=== PATIENT | male | born 1970 | race Caucasian/White ===

== ENCOUNTER 2017-06-11 11:04 | Inpatient (IN) | payer OTHER ==
[2017-06-11 12:26] VITALS: BMI 25.3
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
[2017-06-11] MEDS ORDERED: P-EPHED 60MG/TRIPROLIDI 2.5MG TABLET PO PRN (16:31)
[2017-06-11] MEDS ORDERED: MENTHOL/PHENOL 1 EACH UD MM PRN (16:31)
[2017-06-11] MEDS ORDERED: MAGNESIUM CITRATE 300 ML BOTTLE PO PRN (16:31)
[2017-06-11] MEDS ORDERED: IBUPROFEN 400 MG TABLET (FP) PO PRN (16:31)
[2017-06-11] MEDS ORDERED: MAGNESIUM HYDROX 2400MG/30ML ORAL SUSPENSION 30 ML CUP PO PRN (16:31)
[2017-06-11] MEDS ORDERED: MAG HYDROX/AL HYDROX/SIMETH 30 ML UNIT-DOSE CUP PO PRN (16:31)
[2017-06-11] MEDS ORDERED: guaiFENesin/D-METHORPHAN HB 10 ML UNIT-DOSE CUPS PO PRN (16:31)
[2017-06-11] MEDS ORDERED: hydrOXYzine PAMOATE 50 MG CAPSULE (FP) PO PRN (16:31)
[2017-06-11] MEDS ORDERED: LOPERAMIDE HCL 2 MG CAPSULE PO PRN (16:31)
[2017-06-11] MEDS ORDERED: ACETAMINOPHEN 325 MG TABLET (FP) PO PRN (16:31)
[2017-06-11] MEDS ORDERED: diphenhydrAMINE HCL 50 MG CAPSULE PO PRN (16:31)
[2017-06-11] MEDS ORDERED: METHADONE HCL 10 MG TABLET (FOR DETOX USE ONLY) PO ONE ×2 (17:15→23:00)
[2017-06-11] MEDS ORDERED: diazePAM 5 MG TABLET PO ONE (17:15)
[2017-06-11] MEDS: NICOTINE 21 MG/24 HOURS TOPICAL PATCH TD SCH (17:58)
[2017-06-11 21:05] LABS: URINE APPEARANCE CLEAR; URINE BILIRUBIN NEGATIVE (NEGATIVE); URINE BLOOD 2+ (NEGATIVE); URINE COLOR LTYELLOW; URINE GLUCOSE (UA) NEGATIVE (NEGATIVE); URINE KETONE NEGATIVE (NEGATIVE); URINE NITRITE NEGATIVE (NEGATIVE); URINE PROTEIN NEGATIVE (NEGATIVE); URINE UROBILINOGEN NEGATIVE mg/dL (0.2-1.0)
[2017-06-11 21:21] LABS: URINE MUCUS RARE; URINE RBC <1 /hpf (0-3); URINE WBC 1 /hpf (3-5)
[2017-06-11] MEDS: THIAMINE HCL 100 MG TABLET (FP) PO SCH (22:11)
[2017-06-11] MEDS: diazePAM 5 MG TABLET PO SCH (22:11)
[2017-06-11] MEDS: NICOTINE POLACRILEX 2 MG GUM BC PRN (22:14)
[2017-06-11 22:48] LABS: URINE LEUK ESTERASE Negative (NEGATIVE)
[2017-06-12] MEDS: diazePAM 5 MG TABLET PO SCH ×3 (05:30→23:01)
--- NOTE | 2017-06-12 08:37 | EKG ---
Test Reason : Blood Pressure : / mmHG Vent. Rate : 072 BPM Atrial Rate : 072 BPM P-R Int : 136 ms QRS Dur : 120 ms QT Int : 376 ms P-R-T Axes : 054 007 055 degrees QTc Int : 411 ms NORMAL SINUS RHYTHM RIGHT BUNDLE BRANCH BLOCK ABNORMAL ECG WHEN COMPARED WITH ECG OF 11-JUN-2017 18:05, NO SIGNIFICANT CHANGE WAS FOUND Confirmed by HUNTER VALENTIN MD ([id number]) on 06/12/2017 8:37:06 AM Referred By: Confirmed By:HUNTER VALENTIN MD
[2017-06-12] MEDS ORDERED: METHADONE HCL 10 MG TABLET (FOR DETOX USE ONLY) PO SCH (10:00)
[2017-06-12] MEDS: diazePAM 5 MG TABLET PO PRN ×3 (10:11→21:18)
[2017-06-12] MEDS: PRENATAL VITAMINS W/ FOLIC ACID TABLET (FP) PO SCH (10:12)
[2017-06-12] MEDS: NICOTINE 21 MG/24 HOURS TOPICAL PATCH TD SCH (10:12)
[2017-06-12 11:03] LABS: MCH 27.5 pg (25.7-33.7); MCHC 33.5 g/dl (32.0-35.9); MEAN CELL VOLUME 81.9 fl (80-96); MEAN PLT VOLUME 8.1 fl (7.5-11.1); PLATELET COUNT 275 K/MM3 (134-434); RDW 15.5 % (11.9-15.9); WHITE BLOOD COUNT 8.1 K/mm3 (4.0-10.0)
[2017-06-12 11:13] LABS: ALBUMIN 3.9 g/dl (3.4-5.0); ANION GAP 8 (8-16); BILIRUBIN,TOTAL 0.3 mg/dL (0.2-1.0); CALCIUM 8.6 mg/dL (8.5-10.1); CO2 26 mmol/L (21-32); GLUCOSE,RANDOM 123 mg/dL (74-106); SGOT/AST 20 U/L (15-37); SGPT/ALT 30 U/L (12-78)
[2017-06-12 11:16] LABS: ALK PHOS 103 U/L (45-117)
--- NOTE | 2017-06-12 12:41 | CONSULT ---
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 Substance Abuse History: Patient admits to an extensive history of alcohol, cocaine and heroin abuse. Smoking history: Current every day smoker. Have you smoked in the past 12 months: Yes. Aproximately how many cigarettes per day: 20. Cigars Per Day: 0. Hx Chewing Tobacco Use: No. Initiated information on smoking cessation: Yes. 'Breaking Loose' booklet given: 06/11/17 (GIVEN ON UNIT.). - Substance & Tx. History. Hx Alcohol Use: Yes. Hx Substance Use: Yes. Substance Use Type: Alcohol, Cocaine, Heroin. Hx Substance Use Treatment : Yes (Previous detox admissions at [facility]: Most Recent: 11/2015.). - Substances Abused. Heroin. Route: Inhalation. Frequency: Daily. Amount used: 6-7 bags. Age of first use: 19. Date of Last Use: 06/10/17. Crack. Route: Smoking. Frequency: Daily. Amount used: $200-300. Age of first use: 14. Date of Last Use: 06/11/17. Alcohol-beer. Route: Oral. Frequency: Daily. Amount used: 10-12 (22 oz.). Age of first use: 12. Date of Last Use: 06/11/17 Medical History: Consistent with report of anemia,GERD,hypertension and bronchial asthma (childhood). Psychiatric History: Remote history of psychiatric hospitalization at [facility] (age 12) for behavioral disturbances.Diagnosed with ADHD and treated for some time with psychostimulants.Later in life,the patient saw a psychiatrist to address depression/anxiety which led to a diagnosis of MDD (treated with paxil at [facility]).Lost to follow up for several months.Off psychotropic medications at this time (own choice).Mr De Jesus denies history of suicide attempts. Physical/Sexual Abuse/Trauma History: Patient denies. Additional Comment: Urine Drug Screen Results: LUIS ALBERTO-Cocaine, OPI-Opiates.Noted. Mental Status Exam - Mental Status Exam Alert and Oriented to: Time, Place, Person Cognitive Function: Good Patient Appearance: Well Groomed Mood: Withdrawn, Hopeful, Euthymic Affect: Normal Range Patient Behavior: Fatigued, Appropriate, Cooperative Speech Pattern: Clear, Appropriate Voice Loudness: Normal Thought Process: Intact, Goal Oriented Thought Disorder: Not Present Hallucinations: Denies Suicidal Ideation: Denies Homicidal Ideation: Denies Insight/Judgement: Poor Sleep: Poorly, Difficulty falling asleep (requests ambien) Appetite: Good Muscle strength/Tone: Normal Gait/Station: Normal Psychiatric Findings - Problem List ([place] 1, 2,3) (1) Alcohol dependence with uncomplicated withdrawal Current Visit: Yes Status: Acute (2) Cocaine dependence, uncomplicated Current Visit: Yes Status: Acute (3) Opioid dependence with withdrawal Current Visit: Yes Status: Acute (4) Nicotine dependence Current Visit: Yes Status: Chronic Qualifiers: Nicotine product type: cigarettes Substance use status: uncomplicated Qualified Code(s): F17.210 - Nicotine dependence, cigarettes, uncomplicated; F17.210 - Nicotine dependence, cigarettes, uncomplicated (5) Substance induced mood disorder Current Visit: Yes Status: Acute (6) GERD (gastroesophageal reflux disease) Current Visit: Yes Status: Chronic Qualifiers: Esophagitis presence: esophagitis presence not specified Qualified Code(s): K21.9 - Gastro-esophageal reflux disease without esophagitis; K21.9 - Gastro-esophageal reflux disease without esophagitis; K21.9 - Gastro-esophageal reflux disease without esophagitis (7) Insomnia Current Visit: Yes Status: Acute - Initial Treatment Plan Initial Treatment Plan: Psychoeducation.Detoxification.Ambien 10 mg po hs prn.Risk for parasomnias : discussed with patient.Made aware of benefits of sleep hygiene.Mr De Jesus agrees with this careplan.Observation.
--- NOTE | 2017-06-12 16:42 | PN ---
S CIWA - CIWA Score Nausea/Vomitin Muscle Tremors: 4-Moderate,w/Arms Extend Anxiety: 4-Mod. Anxious/Guarded Agitation: 3 Paroxysmal Sweats: 3 Orientation: 0-Oriented Tacttile Disturbances: 0-None Auditory Disturbances: 0-None Visual Disturbances: 0-None Headache: 3-Moderate CIWA-Ar Total Score: 20 BHS COWS - Scale Resting Pulse: 1= [place] 81-100 Sweatin= Chills/Flushing Restless Observation: 1= Difficult to Sit Still Pupil Size: 0= Normal to Room Light Bone or Joint Aches: 2= Severe Diffuse Aches Runny Nose/ Eye Tearin= Runny Nose/Eyes GI Upset > 30mins: 2= Nausea/Diarrhea Tremor Observation of Outstretched Hands: 2= Slight Tremor Visible Yawning Observation: 2= >3x During Session Anxiety or Irritability: 2=Irritable/Anxious Goose Flesh Skin: 3=Piloerection COWS Score: 18 BHS Progress Note (SOAP) Subjective: Sweating, Interrupted sleep, Tremors, Nausea, Stomach Cramping, H/A, Fatigue. Objective: PT. A & O X 3, OBSERVED AMBULATING ON UNIT. NO ACUTE DISTRESS. PATIENT DENIES CHEST PAIN. 06/12/17 16:39 Vital Signs Temperature 98.4 F 06/12/17 14:30 Pulse Rate 86 06/12/17 14:30 Respiratory Rate 18 06/12/17 14:30 Blood Pressure 107/62 06/12/17 14:30 O2 Sat by Pulse Oximetry (%) Laboratory Tests 06/11/17 06/12/17 06/12/17 20:00 06:08 06:08 WBC 8.1 D RBC 4.96 Hgb 13.6 Hct 40.6 MCV 81.9 MCH 27.5 MCHC 33.5 RDW 15.5 Plt Count 275 MPV 8.1 Sodium 140 Potassium 4.1 Chloride 106 Carbon Dioxide 26 Anion Gap 8 BUN 17 D Creatinine 1.0 D Creat Clearance w eGFR > 60 Random Glucose 123 H D Calcium 8.6 Total Bilirubin 0.3 D AST 20 D ALT 30 D Alkaline Phosphatase 103 D Total Protein 7.0 Albumin 3.9 Urine Color Ltyellow Urine Appearance Clear Urine pH 5.0 Ur Specific [place] 1.010 Urine Protein Negative Urine Glucose (UA) Negative Urine Ketones Negative Urine Blood 2+ H Urine Nitrite Negative Urine Bilirubin Negative Urine Urobilinogen Negative Ur Leukocyte Esterase Negative Urine RBC <1 Urine WBC 1 Urine Mucus Rare RPR Titer 06/12/17 06:08 WBC RBC Hgb Hct MCV MCH MCHC RDW Plt Count MPV Sodium Potassium Chloride Carbon Dioxide Anion Gap BUN Creatinine Creat Clearance w eGFR Random Glucose Calcium Total Bilirubin AST ALT Alkaline Phosphatase Total Protein Albumin Urine Color Urine Appearance Urine pH Ur Specific [place] Urine Protein Urine Glucose (UA) Urine Ketones Urine Blood Urine Nitrite Urine Bilirubin Urine Urobilinogen Ur Leukocyte Esterase Urine RBC Urine WBC Urine Mucus RPR Titer Nonreactive LABS NOTED. Assessment: 06/12/17 16:40 WITHDRAWAL SYMPTOMS. Plan: CONTINUE DETOX. INCREASE DAILY PO FLUID INTAKE.
[2017-06-12] MEDS: NICOTINE POLACRILEX 2 MG GUM BC PRN (21:19)
[2017-06-12] MEDS: THIAMINE HCL 100 MG TABLET (FP) PO SCH (23:00)
[2017-06-12] MEDS: ZOLPIDEM TARTRATE 5 MG TABLET PO PRN (23:00)
[2017-06-13] MEDS: diazePAM 5 MG TABLET PO PRN ×3 (05:50→18:22)
--- NOTE | 2017-06-13 09:12 | EKG ---
Test Reason : Blood Pressure : / mmHG Vent. Rate : 078 BPM Atrial Rate : 078 BPM P-R Int : 146 ms QRS Dur : 114 ms QT Int : 388 ms P-R-T Axes : 056 018 040 degrees QTc Int : 442 ms NORMAL SINUS RHYTHM INCOMPLETE RIGHT BUNDLE BRANCH BLOCK BORDERLINE ECG NO PREVIOUS ECGS AVAILABLE Confirmed by HUNTER VALENTIN MD ([id number]) on 06/13/2017 9:12:01 AM Referred By: Confirmed By:HUNTER VALENTIN MD
[2017-06-13] MEDS: METHADONE HCL 5 MG TABLET (FOR DETOX USE ONLY) PO SCH (10:09)
[2017-06-13] MEDS: PRENATAL VITAMINS W/ FOLIC ACID TABLET (FP) PO SCH (10:09)
[2017-06-13] MEDS: diazePAM 5 MG TABLET PO SCH ×2 (10:09→22:12)
[2017-06-13] MEDS: NICOTINE 21 MG/24 HOURS TOPICAL PATCH TD SCH (10:09)
[2017-06-13] MEDS: NICOTINE POLACRILEX 2 MG GUM BC PRN (10:10)
--- NOTE | 2017-06-13 16:00 | PN ---
S CIWA - CIWA Score Nausea/Vomitin-No Nausea/No Vomiting Muscle Tremors: 5 Anxiety: 5 Agitation: 3 Paroxysmal Sweats: 3 Orientation: 0-Oriented Tacttile Disturbances: 1-Very Mild Itch/Numbness Auditory Disturbances: 0-None Visual Disturbances: 0-None Headache: 2-Mild CIWA-Ar Total Score: 19 BHS COWS - Scale Resting Pulse: 1= [place] 81-100 Sweatin=Flushed/Facial Moisture Restless Observation: 3= Extraneous Movement Pupil Size: 0= Normal to Room Light Bone or Joint Aches: 2= Severe Diffuse Aches Runny Nose/ Eye Tearin= Runny Nose/Eyes GI Upset > 30mins: 2= Nausea/Diarrhea Tremor Observation of Outstretched Hands: 2= Slight Tremor Visible Yawning Observation: 0= None Anxiety or Irritability: 2=Irritable/Anxious Goose Flesh Skin: 0=Smooth Skin COWS Score: 16 BHS Progress Note (SOAP) Subjective: Body aches, interrupted sleep, sweating, chills, tremor Objective: 06/13/17 15:58 Vital Signs - 8 hr Last Vital Signs Temp Pulse Resp BP Pulse Ox 97.0 F L 95 H 16 121/83 06/13/17 12:54 06/13/17 12:54 06/13/17 12:54 06/13/17 12:54 Laboratory Tests 06/11/17 06/12/17 06/12/17 20:00 06:08 06:08 WBC 8.1 D RBC 4.96 Hgb 13.6 Hct 40.6 MCV 81.9 MCH 27.5 MCHC 33.5 RDW 15.5 Plt Count 275 MPV 8.1 Sodium 140 Potassium 4.1 Chloride 106 Carbon Dioxide 26 Anion Gap 8 BUN 17 D Creatinine 1.0 D Creat Clearance w eGFR > 60 Random Glucose 123 H D Calcium 8.6 Total Bilirubin 0.3 D AST 20 D ALT 30 D Alkaline Phosphatase 103 D Total Protein 7.0 Albumin 3.9 Urine Color Ltyellow Urine Appearance Clear Urine pH 5.0 Ur Specific [place] 1.010 Urine Protein Negative Urine Glucose (UA) Negative Urine Ketones Negative Urine Blood 2+ H Urine Nitrite Negative Urine Bilirubin Negative Urine Urobilinogen Negative Ur Leukocyte Esterase Negative Urine RBC <1 Urine WBC 1 Urine Mucus Rare RPR Titer 06/12/17 06:08 WBC RBC Hgb Hct MCV MCH MCHC RDW Plt Count MPV Sodium Potassium Chloride Carbon Dioxide Anion Gap BUN Creatinine Creat Clearance w eGFR Random Glucose Calcium Total Bilirubin AST ALT Alkaline Phosphatase Total Protein Albumin Urine Color Urine Appearance Urine pH Ur Specific [place] Urine Protein Urine Glucose (UA) Urine Ketones Urine Blood Urine Nitrite Urine Bilirubin Urine Urobilinogen Ur Leukocyte Esterase Urine RBC Urine WBC Urine Mucus RPR Titer Nonreactive Labs noted: UA noted with 2+ blood Assessment: 06/13/17 16:00 Withdrawal symptoms Noted with microscopic hematuria Plan: Continue detox Microscopic hematuria: encouraged to drink lots of water, repeat UA
[2017-06-13] MEDS: ZOLPIDEM TARTRATE 5 MG TABLET PO PRN (22:12)
[2017-06-13] MEDS: THIAMINE HCL 100 MG TABLET (FP) PO SCH (22:12)
[2017-06-14] MEDS: diazePAM 5 MG TABLET PO PRN ×3 (01:40→12:11)
[2017-06-14] MEDS: NICOTINE POLACRILEX 2 MG GUM BC PRN (05:33)
[2017-06-14 09:57] LABS: URINE APPEARANCE CLEAR; URINE BILIRUBIN NEGATIVE (NEGATIVE); URINE BLOOD 1+ (NEGATIVE); URINE COLOR STRAW; URINE GLUCOSE (UA) NEGATIVE (NEGATIVE); URINE KETONE NEGATIVE (NEGATIVE); URINE NITRITE NEGATIVE (NEGATIVE); URINE PROTEIN NEGATIVE (NEGATIVE); URINE UROBILINOGEN NEGATIVE mg/dL (0.2-1.0)
[2017-06-14 09:59] LABS: URINE MUCUS RARE; URINE RBC 2 /hpf (0-3)
--- NOTE | 2017-06-14 10:04 | PN ---
BHS Progress Note (SOAP) Subjective: ANXIETY,HOT/COLD FLASHES,IRRITABILITY,BACK ACHE,FATIGUE. Objective: 06/14/17 10:03 Vital Signs Temperature 97.4 F L 06/14/17 09:28 Pulse Rate 88 06/14/17 09:28 Respiratory Rate 18 06/14/17 09:28 Blood Pressure 114/74 06/14/17 09:28 O2 Sat by Pulse Oximetry (%) Laboratory Last Values WBC 8.1 K/mm3 (4.0-10.0) D 06/12/17 06:08 RBC 4.96 M/mm3 (4.00-5.60) 06/12/17 06:08 Hgb 13.6 GM/dL (11.7-16.9) 06/12/17 06:08 Hct 40.6 % (35.4-49) 06/12/17 06:08 MCV 81.9 fl (80-96) 06/12/17 06:08 MCH 27.5 pg (25.7-33.7) 06/12/17 06:08 MCHC 33.5 g/dl (32.0-35.9) 06/12/17 06:08 RDW 15.5 % (11.9-15.9) 06/12/17 06:08 Plt Count 275 K/MM3 (134-434) 06/12/17 06:08 MPV 8.1 fl (7.5-11.1) 06/12/17 06:08 Sodium 140 mmol/L (136-145) 06/12/17 06:08 Potassium 4.1 mmol/L (3.5-5.1) 06/12/17 06:08 Chloride 106 mmol/L (98-107) 06/12/17 06:08 Carbon Dioxide 26 mmol/L (21-32) 06/12/17 06:08 Anion Gap 8 (8-16) 06/12/17 06:08 BUN 17 mg/dL (7-18) D 06/12/17 06:08 Creatinine 1.0 mg/dL (0.7-1.3) D 06/12/17 06:08 Creat Clearance w eGFR > 60 (>60) 06/12/17 06:08 Random Glucose 123 mg/dL (74-106) H D 06/12/17 06:08 Calcium 8.6 mg/dL (8.5-10.1) 06/12/17 06:08 Total Bilirubin 0.3 mg/dL (0.2-1.0) D 06/12/17 06:08 AST 20 U/L (15-37) D 06/12/17 06:08 ALT 30 U/L (12-78) D 06/12/17 06:08 Alkaline Phosphatase 103 U/L (45-117) D 06/12/17 06:08 Total Protein 7.0 g/dl (6.4-8.2) 06/12/17 06:08 Albumin 3.9 g/dl (3.4-5.0) 06/12/17 06:08 Urine Color Straw 06/14/17 08:30 Urine Appearance Clear 06/14/17 08:30 Urine pH 5.0 (5.0-8.0) 06/14/17 08:30 Ur Specific [place] 1.010 (1.005-1.025) 06/11/17 20:00 Urine Protein Negative (NEGATIVE) 06/14/17 08:30 Urine Glucose (UA) Negative (NEGATIVE) 06/14/17 08:30 Urine Ketones Negative (NEGATIVE) 06/14/17 08:30 Urine Blood 1+ (NEGATIVE) H 06/14/17 08:30 Urine Nitrite Negative (NEGATIVE) 06/14/17 08:30 Urine Bilirubin Negative (NEGATIVE) 06/14/17 08:30 Urine Urobilinogen Negative mg/dL (0.2-1.0) 06/14/17 08:30 Ur Leukocyte Esterase Negative (NEGATIVE) 06/11/17 20:00 Urine RBC <1 /hpf (0-3) 06/11/17 20:00 Urine WBC 1 /hpf (3-5) 06/11/17 20:00 Urine Mucus Rare 06/11/17 20:00 RPR Titer Nonreactive (NONREACTIVE) 06/12/17 06:08 Assessment: 06/14/17 10:03 WITHDRAWAL SX Plan: CONTINUE DETOX INCREASE PO FLUIDS.
[2017-06-14] MEDS: METHADONE HCL 5 MG TABLET (FOR DETOX USE ONLY) PO SCH (10:09)
[2017-06-14] MEDS: diazePAM 5 MG TABLET PO SCH ×2 (10:09→22:31)
[2017-06-14] MEDS: PRENATAL VITAMINS W/ FOLIC ACID TABLET (FP) PO SCH (10:09)
[2017-06-14] MEDS: NICOTINE 21 MG/24 HOURS TOPICAL PATCH TD SCH (10:10)
[2017-06-14 13:12] LABS: URINE LEUK ESTERASE Negative (NEGATIVE)
[2017-06-14] MEDS ORDERED: diazePAM 5 MG TABLET PO ONE (17:15)
[2017-06-14] MEDS: THIAMINE HCL 100 MG TABLET (FP) PO SCH (22:31)
[2017-06-14] MEDS: ZOLPIDEM TARTRATE 5 MG TABLET PO PRN (22:31)
[2017-06-15] MEDS ORDERED: METHADONE HCL 10 MG TABLET (FOR DETOX USE ONLY) PO SCH (10:00)
[2017-06-15] MEDS ORDERED: diazePAM 5 MG TABLET PO SCH (10:00)
[2017-06-15] MEDS: PRENATAL VITAMINS W/ FOLIC ACID TABLET (FP) PO SCH (10:10)
[2017-06-15] MEDS: NICOTINE 21 MG/24 HOURS TOPICAL PATCH TD SCH (10:11)
--- NOTE | 2017-06-15 11:51 | PN ---
BHS Progress Note (SOAP) Subjective: ANXIETY,SWEATS,TREMORS. Objective: 06/15/17 11:50 Vital Signs Temperature 97.5 F L 06/15/17 09:15 Pulse Rate 80 06/15/17 09:15 Respiratory Rate 18 06/15/17 09:15 Blood Pressure 134/81 06/15/17 09:15 O2 Sat by Pulse Oximetry (%) Laboratory Last Values WBC 8.1 K/mm3 (4.0-10.0) D 06/12/17 06:08 RBC 4.96 M/mm3 (4.00-5.60) 06/12/17 06:08 Hgb 13.6 GM/dL (11.7-16.9) 06/12/17 06:08 Hct 40.6 % (35.4-49) 06/12/17 06:08 MCV 81.9 fl (80-96) 06/12/17 06:08 MCH 27.5 pg (25.7-33.7) 06/12/17 06:08 MCHC 33.5 g/dl (32.0-35.9) 06/12/17 06:08 RDW 15.5 % (11.9-15.9) 06/12/17 06:08 Plt Count 275 K/MM3 (134-434) 06/12/17 06:08 MPV 8.1 fl (7.5-11.1) 06/12/17 06:08 Sodium 140 mmol/L (136-145) 06/12/17 06:08 Potassium 4.1 mmol/L (3.5-5.1) 06/12/17 06:08 Chloride 106 mmol/L (98-107) 06/12/17 06:08 Carbon Dioxide 26 mmol/L (21-32) 06/12/17 06:08 Anion Gap 8 (8-16) 06/12/17 06:08 BUN 17 mg/dL (7-18) D 06/12/17 06:08 Creatinine 1.0 mg/dL (0.7-1.3) D 06/12/17 06:08 Creat Clearance w eGFR > 60 (>60) 06/12/17 06:08 Random Glucose 123 mg/dL (74-106) H D 06/12/17 06:08 Calcium 8.6 mg/dL (8.5-10.1) 06/12/17 06:08 Total Bilirubin 0.3 mg/dL (0.2-1.0) D 06/12/17 06:08 AST 20 U/L (15-37) D 06/12/17 06:08 ALT 30 U/L (12-78) D 06/12/17 06:08 Alkaline Phosphatase 103 U/L (45-117) D 06/12/17 06:08 Total Protein 7.0 g/dl (6.4-8.2) 06/12/17 06:08 Albumin 3.9 g/dl (3.4-5.0) 06/12/17 06:08 Urine Color Straw 06/14/17 08:30 Urine Appearance Clear 06/14/17 08:30 Urine pH 5.0 (5.0-8.0) 06/14/17 08:30 Ur Specific [place] 1.010 (1.005-1.025) 06/14/17 08:30 Urine Protein Negative (NEGATIVE) 06/14/17 08:30 Urine Glucose (UA) Negative (NEGATIVE) 06/14/17 08:30 Urine Ketones Negative (NEGATIVE) 06/14/17 08:30 Urine Blood 1+ (NEGATIVE) H 06/14/17 08:30 Urine Nitrite Negative (NEGATIVE) 06/14/17 08:30 Urine Bilirubin Negative (NEGATIVE) 06/14/17 08:30 Urine Urobilinogen Negative mg/dL (0.2-1.0) 06/14/17 08:30 Ur Leukocyte Esterase Negative (NEGATIVE) 06/14/17 08:30 Urine RBC 2 /hpf (0-3) 06/14/17 08:30 Urine WBC None /hpf (3-5) 06/14/17 08:30 Ur Epithelial Cells Rare /hpf (FEW) 06/14/17 08:30 Urine Mucus Rare 06/14/17 08:30 RPR Titer Nonreactive (NONREACTIVE) 06/12/17 06:08 Assessment: 06/15/17 11:50 WITHDRAWAL SX Plan: CONTINUE DETOX
[2017-06-15] MEDS: THIAMINE HCL 100 MG TABLET (FP) PO SCH (22:08)
[2017-06-15] MEDS: ZOLPIDEM TARTRATE 5 MG TABLET PO PRN (22:08)
[2017-06-16] MEDS ORDERED: METHADONE HCL 5 MG TABLET (FOR DETOX USE ONLY) PO SCH (06:00)
[2017-06-16 06:07] VITALS: BP 116/70; PULSE 68; TEMP 97.4
--- NOTE | 2017-06-16 09:22 | DS ---
[facility] Detox Discharge Summary Admission Date: 06/11/17 Discharge Date: 06/16/17 - History Present History: Alcohol Dependence, Cocaine Dependence, Opioid Dependence Additional Comments: DETOX COMPLETED. ALERT O X 3. NAD. PT TO FOLLOW UP WITH PCP AT [facility]. Pertinent Past History: GERD HX VASCULAR INSUFFICIENCY OF LIMB BORDERLINE HTN HX ANEMIA CHILDHOOD ASTHMA - Physical Exam Results Vital Signs: Vital Signs Temperature 97.4 F L 06/16/17 06:06 Pulse Rate 68 06/16/17 06:06 Respiratory Rate 16 06/16/17 06:06 Blood Pressure 116/70 06/16/17 06:06 O2 Sat by Pulse Oximetry (%) Pertinent Admission Physical Exam Findings: WITHDRAWAL SX Laboratory Last Values WBC 8.1 K/mm3 (4.0-10.0) D 06/12/17 06:08 RBC 4.96 M/mm3 (4.00-5.60) 06/12/17 06:08 Hgb 13.6 GM/dL (11.7-16.9) 06/12/17 06:08 Hct 40.6 % (35.4-49) 06/12/17 06:08 MCV 81.9 fl (80-96) 06/12/17 06:08 MCH 27.5 pg (25.7-33.7) 06/12/17 06:08 MCHC 33.5 g/dl (32.0-35.9) 06/12/17 06:08 RDW 15.5 % (11.9-15.9) 06/12/17 06:08 Plt Count 275 K/MM3 (134-434) 06/12/17 06:08 MPV 8.1 fl (7.5-11.1) 06/12/17 06:08 Sodium 140 mmol/L (136-145) 06/12/17 06:08 Potassium 4.1 mmol/L (3.5-5.1) 06/12/17 06:08 Chloride 106 mmol/L (98-107) 06/12/17 06:08 Carbon Dioxide 26 mmol/L (21-32) 06/12/17 06:08 Anion Gap 8 (8-16) 06/12/17 06:08 BUN 17 mg/dL (7-18) D 06/12/17 06:08 Creatinine 1.0 mg/dL (0.7-1.3) D 06/12/17 06:08 Creat Clearance w eGFR > 60 (>60) 06/12/17 06:08 Random Glucose 123 mg/dL (74-106) H D 06/12/17 06:08 Calcium 8.6 mg/dL (8.5-10.1) 06/12/17 06:08 Total Bilirubin 0.3 mg/dL (0.2-1.0) D 06/12/17 06:08 AST 20 U/L (15-37) D 06/12/17 06:08 ALT 30 U/L (12-78) D 06/12/17 06:08 Alkaline Phosphatase 103 U/L (45-117) D 06/12/17 06:08 Total Protein 7.0 g/dl (6.4-8.2) 06/12/17 06:08 Albumin 3.9 g/dl (3.4-5.0) 06/12/17 06:08 Urine Color Straw 06/14/17 08:30 Urine Appearance Clear 06/14/17 08:30 Urine pH 5.0 (5.0-8.0) 06/14/17 08:30 Ur Specific [place] 1.010 (1.005-1.025) 06/14/17 08:30 Urine Protein Negative (NEGATIVE) 06/14/17 08:30 Urine Glucose (UA) Negative (NEGATIVE) 06/14/17 08:30 Urine Ketones Negative (NEGATIVE) 06/14/17 08:30 Urine Blood 1+ (NEGATIVE) H 06/14/17 08:30 Urine Nitrite Negative (NEGATIVE) 06/14/17 08:30 Urine Bilirubin Negative (NEGATIVE) 06/14/17 08:30 Urine Urobilinogen Negative mg/dL (0.2-1.0) 06/14/17 08:30 Ur Leukocyte Esterase Negative (NEGATIVE) 06/14/17 08:30 Urine RBC 2 /hpf (0-3) 06/14/17 08:30 Urine WBC None /hpf (3-5) 06/14/17 08:30 Ur Epithelial Cells Rare /hpf (FEW) 06/14/17 08:30 Urine Mucus Rare 06/14/17 08:30 RPR Titer Nonreactive (NONREACTIVE) 06/12/17 06:08 - Treatment Hospital Course: Detox Protocol Followed, Detoxed Safely, Responded well, Discharged Condition Good - Medication Discharge Medications: Ambulatory Orders NK [No Known Home Medication] 06/11/17 - Diagnosis (1) Alcohol dependence with uncomplicated withdrawal Status: Acute (2) Cocaine dependence, uncomplicated Status: Acute (3) Opioid dependence with withdrawal Status: Acute (4) GERD (gastroesophageal reflux disease) Status: Chronic Qualifiers: Esophagitis presence: esophagitis presence not specified Qualified Code(s): K21.9 - Gastro-esophageal reflux disease without esophagitis; K21.9 - Gastro-esophageal reflux disease without esophagitis; K21.9 - Gastro-esophageal reflux disease without esophagitis (5) History of iron deficiency anemia Status: Chronic - AMA Did Patient Leave Against Medical Advice: No
== END 2017-06-16 08:26 | disposition home or self-care (01) | DRG 773 ==
LOC: YASAS 11:04 → Y3N 15:21
PROVIDERS: ADMIT Internal Medicine; ATTEND Internal Medicine
PROC: HZ2ZZZZ Detoxification Services for Substance Abuse Treatment (ICD-10-PCS; principal; 2017-06-11)
DX: F11.23 Opioid dependence with withdrawal (principal); F10.230 Alcohol dependence with withdrawal, uncomplicated; F14.20 Cocaine dependence, uncomplicated; F17.213 Nicotine dependence, cigarettes, with withdrawal; K21.9 Gastro-esophageal reflux disease without esophagitis; R03.0 Elevated blood-pressure reading, without diagnosis of hypertension; R31.29 Other microscopic hematuria; G47.00 Insomnia, unspecified; Z91.018 Allergy to other foods; Z86.2 Personal history of diseases of the blood and blood-forming organs and certain disorders involving the immune mechanism; Z87.09 Personal history of other diseases of the respiratory system
CPT/HCPCS: 36415; 80053; 81003; 81015; 85027; 86593; 93005; 93010

== ENCOUNTER 2020-02-05 12:28 | Inpatient (IN) | payer OTHER ==
--- NOTE | 2020-02-05 12:45 | BHS.RME ---
Substance Use & Tx History - Substance Use History Alcohol Substance amount: 6 20 oz beers Frequency of use: Daily Substance route: Oral Date of Last Use: 02/04/20 Heroin Substance amount: 8-12 bags Frequency of use: Daily Substance route: Inhalation (ex: sniffing or snorting) Date of Last Use: 02/04/20 Cocaine-Crack Substance amount: $20-100 Frequency of use: Daily Substance route: Smoking Date of Last Use: 02/04/20 Nicotine Substance amount: 1 pack Frequency of use: Daily Substance route: Smoking Date of Last Use: 02/05/20 Physical/Psych/Mental Status - Behavior General Behavior: Increased activity (restlessness, agitation) Eye Contact: Normal - Cooperativeness Cooperativeness: Cooperative - Thinking Thought Processes: Tight, Logical, Goal Directed - Physical Health Problems Is patient presently having any pain?: No Does patient presently have any injuries (include location): No Does patient currently have a fever: No Is patient : No COWS - Scale Resting Pulse: 0= [place] 80 or Below Sweatin= Beads of Sweat on Face Restless Observation: 1= Difficult to Sit Still Pupil Size: 1= Pupils >than Normal Bone or Joint Aches: 1= Mild Discomfort Runny Nose/ Eye Tearin= Runny Nose/Eyes GI Upset > 30mins: 3= Vomiting/Diarrhea Tremor Observation: 2= Slight Tremor Visible Yawning Observation: 1= 1-2x During Session Anxiety or Irritability: 2=Irritable/Anxious Goose Flesh Skin: 0=Smooth Skin COWS Score: 16
--- NOTE | 2020-02-05 13:53 | HP ---
COWS - Scale Resting Pulse: 0= [place] 80 or Below Sweatin= Beads of Sweat on Face Restless Observation: 1= Difficult to Sit Still Pupil Size: 1= Pupils >than Normal Bone or Joint Aches: 1= Mild Discomfort Runny Nose/ Eye Tearin= Runny Nose/Eyes GI Upset > 30mins: 3= Vomiting/Diarrhea Tremor Observation: 2= Slight Tremor Visible Yawning Observation: 1= 1-2x During Session Anxiety or Irritability: 2=Irritable/Anxious Goose Flesh Skin: 0=Smooth Skin COWS Score: 16 CIWA Score Nausea/Vomitin Muscle Tremors: 3 Anxiety: 1-Mildly Anxious Agitation: 1-Slight > Activity Paroxysmal Sweats: 3 Orientation: 2-Disoriented Date<2 days Tacttile Disturbances: 1-Very Mild Itch/Numbness Auditory Disturbances: 0-None Visual Disturbances: 2-Mild Sensitivity Headache: 0-None Present CIWA-Ar Total Score: 15 - Admission Criteria OASAS Guidelines: Admission for Medically Managed Detox: Requires at least one of the followin. CIWA greater than 12 2. Seizures within the past 24 hours 3. Delirium tremens within the past 24 hours 4. Hallucinations within the past 24 hours 5. Acute intervention needed for co occurring medical disorder 6. Acute intervention needed for co occurring psychiatric disorder 7. Severe withdrawal that cannot be handled at a lower level of care (continued vomiting, continued diarrhea, abnormal vital signs) requiring intravenous medication and/or fluids 8. Admitting History and Physical - Admission Chief Complaint: Mr. De Jesus is a 49 yo gentleman who presents to [facility] stating "I can't do it no more, I'm running around all day, I'm going to ". He requests detox admission. History of Present Illness: Mr. De Jesus is a 49 yo gentleman who presents to [facility] stating "I can't do it no more, I'm running around all day, I'm going to ". He requests detox admission. He was last here in detox in 2017 and in groups in 2018. He relapsed 3 mos ago when he was released from assisted. 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 No Narcan at home Cocaine-Crack Substance amount: $20-100 Frequency of use: Daily Substance route: Smoking Date of Last Use: 02/04/20 First use age 14y Nicotine Substance amount: 1 pack Frequency of use: Daily Substance route: Smoking Date of Last Use: 02/05/20 First use age 11 y History Source: Patient Limitations to Obtaining History: No Limitations - Smoking History Smoking history: Current every day smoker Have you smoked in the past 12 months: Yes Aproximately how many cigarettes per day: 20 - Alcohol/Substance Use Hx Alcohol Use: Yes Admission ROS S - HPI Allergies/Adverse Reactions: Allergies Allergy/AdvReac Type Severity Reaction Status Date / Time No Known Drug Allergies Allergy Verified 06/11/17 13:55 soy AdvReac Severe Vomiting Verified 06/11/17 13:55 red meat AdvReac Severe Vomiting Uncoded 06/11/17 13:55 Exam Limitations: No Limitations - Ebola screening Have you traveled outside of the country in the last 21 days: No Have you been sick,other than usual withdrawal symptoms: No Do you have a fever: No - Review of Systems Constitutional: Unintentional Wgt. Loss (50 lb loss in past 4 mos) EENT: reports: Nose Congestion Respiratory: reports: No Symptoms reported Cardiac: reports: No Symptoms Reported GI: reports: Nausea : reports: No Symptoms Reported Musculoskeletal: reports: Muscle Pain Integumentary: reports: Dryness Neuro: reports: Headache, Tremors Endocrine: reports: No Symptoms Reported Hematology: reports: No Symptoms Reported Psychiatric: reports: Agitated, Anxious Patient History - Patient Medical History Hx Anemia: Yes (Iron-deficieny type; Only treated with Dietary modification in past.) Hx Asthma: Yes (as a child) Hx Chronic Obstructive Pulmonary Disease (COPD): No Hx Cancer: No Hx Cardiac Disorders: No Hx Congestive Heart Failure: No Hx Hypertension: Yes (Borderline; No medication in past.) Hx Hypercholesterolemia: No Hx Pacemaker: No HX Cerebrovascular Accident: No Hx Seizures: No Hx Dementia: No Hx Diabetes: No Hx Gastrointestinal Disorders: Yes (acid reflux) Hx Liver Disease: No Hx Genitourinary Disorders: No Hx Sexually Transmitted Disorders: No Hx Renal Disease (ESRD): No Hx Thyroid Disease: No Hx Human Immunodeficiency Virus (HIV): Yes (Last Tested a few Months ago: NEGATIVE.) Hx Hepatitis C: No (Last Tested a few Months ago: NEGATIVE.) Hx Depression: Yes (Anxiety; meds. in past; none current.) Hx Suicide Attempt: No (PATIENT DENIES CURRENT SI / HI.) Hx Bipolar Disorder: No Hx Schizophrenia: No - Patient Surgical History Past Surgical History: No Hx Neurologic Surgery: No Hx Cataract Extraction: No Hx Cardiac Surgery: No Hx Lung Surgery: No Hx Breast Surgery: No Hx Breast Biopsy: No Hx Abdominal Surgery: No Hx Appendectomy: No Hx Cholecystectomy: No Hx Genitourinary Surgery: No Hx Section: No Hx Orthopedic Surgery: No Anesthesia Reaction: No - PPD History Date: 06/13/17 - Smoking Cessation Smoking history: Current every day smoker Have you smoked in the past 12 months: Yes Aproximately how many cigarettes per day: 20 Cigars Per Day: 0 Hx Chewing Tobacco Use: No Initiated information on smoking cessation: Yes 'Breaking Loose' booklet given: 02/05/20 Admission Physical Exam [facility] - Physical General Appearance: Yes: Mild Distress, Thin, Tremorous HEENTM: Yes: EOMI, Hearing grossly Normal, Normocephalic, Normal Voice Respiratory: Yes: Lungs Clear, Normal Breath Sounds Neck: Yes: Within Normal Limits, Supple, Trachea in good position Breast: Yes: Breast Exam Deferred Cardiology: Yes: Regular Rhythm, Regular Rate, S1, S2 Abdominal: Yes: Non Tender, Flat, Soft, Increased Bowel Sounds Back: Yes: Normal Inspection Musculoskeletal: Yes: Gait Steady Extremities: Yes: Within Normal Limits, Non-Tender Neurological: Yes: Alert, Normal Mood/Affect Integumentary: Yes: Within Normal Limits Lymphatic: Yes: Within Normal Limits - Diagnostic (1) Benzodiazepine dependence Current Visit: Yes Status: Acute (2) Alcohol dependence with uncomplicated withdrawal Current Visit: Yes Status: Acute (3) Nicotine dependence Current Visit: Yes Status: Acute Qualifiers: Nicotine product type: cigarettes Substance use status: uncomplicated Q ualified Code(s): F17.210 - Nicotine dependence, cigarettes, uncomplicated (4) Opioid dependence with withdrawal Current Visit: Yes Status: Acute Cleared for Admission [facility] - Detox or Rehab [facility] Level of Care: Medically Managed Detox Regimen/Protocol: Methadone/Librium Inpatient Rehab Admission - Rehab Decision to Admit Inpatient rehab admission?: No
[2020-02-05] MEDS ORDERED: ONDANSETRON *ODT* 4 MG TABLET SL PRN (14:01)
[2020-02-05] MEDS ORDERED: ACETAMINOPHEN 325 MG TABLET (FP) PO PRN ×2 (14:01)
[2020-02-05] MEDS ORDERED: METHOCARBAMOL 500 MG TABLET PO PRN (14:01)
[2020-02-05] MEDS ORDERED: NICOTINE POLACRILEX 2 MG GUM BUC PRN (14:01)
[2020-02-05] MEDS ORDERED: chlordiazePOXIDE HCL 25 MG CAPSULE PO PRN (14:01)
[2020-02-05] MEDS ORDERED: IBUPROFEN 400 MG TABLET (FP) PO PRN (14:01)
[2020-02-05] MEDS ORDERED: cloNIDine HCL 0.1 MG TABLET PO PRN (14:01)
[2020-02-05] MEDS ORDERED: BISMUTH SUBSALICYLATE 262 MG/15 ML BTL PO PRN (14:01)
[2020-02-05] MEDS ORDERED: MAGNESIUM CITRATE 300 ML BOTTLE PO PRN (14:01)
[2020-02-05] MEDS ORDERED: METHADONE HCL 10 MG TABLET (FOR DETOX USE ONLY) PO ONE (14:01)
[2020-02-05] MEDS ORDERED: MENTHOL/PHENOL 1 EACH UD MM PRN (14:01)
[2020-02-05] MEDS ORDERED: MAG HYDROX/AL HYDROX/SIMETH 30 ML UNIT-DOSE CUP PO PRN (14:01)
[2020-02-05] MEDS ORDERED: METHADONE HCL 10 MG TABLET PO ONE (14:06)
--- NOTE | 2020-02-05 14:09 | HP ---
COWS - Scale Resting Pulse: 0= [place] 80 or Below Sweatin= Beads of Sweat on Face Restless Observation: 1= Difficult to Sit Still Pupil Size: 1= Pupils >than Normal Bone or Joint Aches: 1= Mild Discomfort Runny Nose/ Eye Tearin= Runny Nose/Eyes GI Upset > 30mins: 3= Vomiting/Diarrhea Tremor Observation: 2= Slight Tremor Visible Yawning Observation: 1= 1-2x During Session Anxiety or Irritability: 2=Irritable/Anxious Goose Flesh Skin: 0=Smooth Skin COWS Score: 16 CIWA Score Nausea/Vomitin Muscle Tremors: 3 Anxiety: 1-Mildly Anxious Agitation: 1-Slight > Activity Paroxysmal Sweats: 3 Orientation: 2-Disoriented Date<2 days Tacttile Disturbances: 1-Very Mild Itch/Numbness Auditory Disturbances: 0-None Visual Disturbances: 2-Mild Sensitivity Headache: 0-None Present CIWA-Ar Total Score: 15 - Admission Criteria OASAS Guidelines: Admission for Medically Managed Detox: Requires at least one of the followin. CIWA greater than 12 2. Seizures within the past 24 hours 3. Delirium tremens within the past 24 hours 4. Hallucinations within the past 24 hours 5. Acute intervention needed for co occurring medical disorder 6. Acute intervention needed for co occurring psychiatric disorder 7. Severe withdrawal that cannot be handled at a lower level of care (continued vomiting, continued diarrhea, abnormal vital signs) requiring intravenous medication and/or fluids 8. Admitting History and Physical - Admission History of Present Illness: addendum: pt takes Xanax 2-4 mg daily, began age 19y, last use 02/02 - Smoking History Smoking history: Current every day smoker Have you smoked in the past 12 months: Yes Aproximately how many cigarettes per day: 20 - Alcohol/Substance Use Hx Alcohol Use: Yes Admission ROS S - HPI Allergies/Adverse Reactions: Allergies Allergy/AdvReac Type Severity Reaction Status Date / Time No Known Drug Allergies Allergy Verified 06/11/17 13:55 soy AdvReac Severe Vomiting Verified 06/11/17 13:55 red meat AdvReac Severe Vomiting Uncoded 06/11/17 13:55 - Ebola screening Have you traveled outside of the country in the last 21 days: No Have you been sick,other than usual withdrawal symptoms: No Do you have a fever: No Patient History - Patient Medical History Hx Anemia: Yes (Iron-deficieny type; Only treated with Dietary modification in past.) Hx Asthma: Yes (as a child) Hx Chronic Obstructive Pulmonary Disease (COPD): No Hx Cancer: No Hx Cardiac Disorders: No Hx Congestive Heart Failure: No Hx Hypertension: Yes (Borderline; No medication in past.) Hx Hypercholesterolemia: No Hx Pacemaker: No HX Cerebrovascular Accident: No Hx Seizures: No Hx Dementia: No Hx Diabetes: No Hx Gastrointestinal Disorders: Yes (acid reflux) Hx Liver Disease: No Hx Genitourinary Disorders: No Hx Sexually Transmitted Disorders: No Hx Renal Disease (ESRD): No Hx Thyroid Disease: No Hx Human Immunodeficiency Virus (HIV): Yes (Last Tested a few Months ago: NEGATIVE.) Hx Hepatitis C: No (Last Tested a few Months ago: NEGATIVE.) Hx Depression: Yes (Anxiety; meds. in past; none current.) Hx Suicide Attempt: No (PATIENT DENIES CURRENT SI / HI.) Hx Bipolar Disorder: No Hx Schizophrenia: No - Patient Surgical History Past Surgical History: No Hx Neurologic Surgery: No Hx Cataract Extraction: No Hx Cardiac Surgery: No Hx Lung Surgery: No Hx Breast Surgery: No Hx Breast Biopsy: No Hx Abdominal Surgery: No Hx Appendectomy: No Hx Cholecystectomy: No Hx Genitourinary Surgery: No Hx Section: No Hx Orthopedic Surgery: No Anesthesia Reaction: No - PPD History Date: 06/13/17 - Smoking Cessation Smoking history: Current every day smoker Have you smoked in the past 12 months: Yes Aproximately how many cigarettes per day: 20 Cigars Per Day: 0 Hx Chewing Tobacco Use: No Initiated information on smoking cessation: Yes Admission Physical Exam [facility] - Diagnostic (1) Benzodiazepine dependence Current Visit: Yes Status: Acute (2) Alcohol dependence with uncomplicated withdrawal Current Visit: Yes Status: Acute (3) Nicotine dependence Current Visit: Yes Status: Acute Qualifiers: Nicotine product type: cigarettes Substance use status: uncomplicated Qualified Code(s): F17.210 - Nicotine dependence, cigarettes, uncomplicated (4) Opioid dependence with withdrawal Current Visit: Yes Status: Acute
[2020-02-05 14:39] VITALS: BMI 24.9
[2020-02-05] MEDS ORDERED: hydrOXYzine PAMOATE 25 MG CAPSULE (FP) PO PRN (15:29)
--- NOTE | 2020-02-05 15:32 | EKG ---
Test Reason : Blood Pressure : / mmHG Vent. Rate : 052 BPM Atrial Rate : 052 BPM P-R Int : 146 ms QRS Dur : 102 ms QT Int : 450 ms P-R-T Axes : 054 006 027 degrees QTc Int : 418 ms SINUS BRADYCARDIA OTHERWISE NORMAL ECG WHEN COMPARED WITH ECG OF 12-JUN-2017 07:05, RIGHT BUNDLE BRANCH BLOCK IS NO LONGER PRESENT Confirmed by Azra Ott ([id number]) on 02/05/2020 3:31:40 PM Referred By: Confirmed By:Azra Ott
[2020-02-05] MEDS: PRENATAL VITAMINS W/ FOLIC ACID TABLET (FP) PO SCH (15:33)
[2020-02-05] MEDS: NICOTINE 21 MG/24 HOURS TOPICAL PATCH TD SCH (15:33)
[2020-02-05 17:15] LABS: HEMATOCRIT 30.7 % (35.4-49); HEMOGLOBIN 9.8 GM/dL (11.7-16.9); MEAN CELL VOLUME 78.2 fl (80-96); MEAN PLT VOLUME 7.7 fl (7.5-11.1); PLATELET COUNT 316 K/MM3 (134-434); RBC 3.93 M/mm3 (4.00-5.60); RDW 17.4 % (11.9-15.9); WHITE BLOOD COUNT 4.2 K/mm3 (4.0-10.0)
[2020-02-05 17:30] LABS: BILIRUBIN,TOTAL 0.5 mg/dL (0.2-1); BLOOD UREA NITROGEN 18.3 mg/dL (7-18); CALCIUM 8.7 mg/dL (8.5-10.1); CREATININE 0.9 mg/dL (0.55-1.3); TOT PROT 7.3 g/dl (6.4-8.2)
[2020-02-05] MEDS: chlordiazePOXIDE HCL 25 MG CAPSULE PO SCH ×2 (17:59→22:19)
[2020-02-05] MEDS ORDERED: hydrOXYzine PAMOATE 25 MG CAPSULE (FP) PO SCH (18:00)
[2020-02-05] MEDS: THIAMINE HCL 100 MG TABLET (FP) PO SCH (22:20)
[2020-02-05] MEDS: MELATONIN 5 MG TABLETS PO SCH (23:00)
[2020-02-06] MEDS: chlordiazePOXIDE HCL 25 MG CAPSULE PO SCH ×4 (05:42→22:06)
[2020-02-06] MEDS ORDERED: METHADONE HCL 5 MG TABLET (FOR DETOX USE ONLY) ONE (08:40)
[2020-02-06] MEDS ORDERED: METHADONE HCL 10 MG TABLET (FOR DETOX USE ONLY) ONE (08:40)
[2020-02-06] MEDS ORDERED: METHADONE (DETOX) 20 MG, METHADONE (DETOX) 5 MG PO ONE (10:00)
[2020-02-06] MEDS: NICOTINE 21 MG/24 HOURS TOPICAL PATCH TD SCH (10:16)
[2020-02-06] MEDS: PRENATAL VITAMINS W/ FOLIC ACID TABLET (FP) PO SCH (10:17)
--- NOTE | 2020-02-06 10:32 | PN ---
[facility] CIWA - CIWA Score Nausea/Vomitin-Mild Nausea/No Vomiting Muscle Tremors: 4-Moderate,w/Arms Extend Anxiety: 3 Agitation: 3 Paroxysmal Sweats: 3 Orientation: 0-Oriented Tacttile Disturbances: 0-None Auditory Disturbances: 0-None Visual Disturbances: 0-None Headache: 0-None Present CIWA-Ar Total Score: 14 S COWS - Scale Resting Pulse: 0= [place] 80 or Below Sweatin= Chills/Flushing Restless Observation: 1= Difficult to Sit Still Pupil Size: 0= Normal to Room Light Bone or Joint Aches: 2= Severe Diffuse Aches Runny Nose/ Eye Tearin= Runny Nose/Eyes GI Upset > 30mins: 2= Nausea/Diarrhea Tremor Observation of Outstretched Hands: 2= Slight Tremor Visible Yawning Observation: 2= >3x During Session Anxiety or Irritability: 2=Irritable/Anxious Goose Flesh Skin: 0=Smooth Skin COWS Score: 14 [facility] Progress Note (SOAP) Subjective: sweats shakes interrupted sleep diarrhea body aches agitation anxiety Objective: 02/06/20 10:31 Vital Signs Temperature 97.8 F 02/06/20 08:52 Pulse Rate 62 02/06/20 08:52 Respiratory Rate 18 02/06/20 08:52 Blood Pressure 122/66 02/06/20 08:52 O2 Sat by Pulse Oximetry (%) 96 02/06/20 06:06 Laboratory Tests 02/05/20 02/05/20 02/05/20 14:30 14:30 14:30 WBC 4.2 RBC 3.93 L Hgb 9.8 L Hct 30.7 L D MCV 78.2 L MCH 25.0 L MCHC 32.0 RDW 17.4 H Plt Count 316 MPV 7.7 Sodium 143 Potassium 4.0 Chloride 106 Carbon Dioxide 31 Anion Gap 6 L BUN 18.3 H Creatinine 0.9 Est GFR (CKD-EPI)AfAm 115.02 Est GFR (CKD-EPI)NonAf 99.24 Random Glucose 109 H Calcium 8.7 Total Bilirubin 0.5 AST 26 ALT 27 Alkaline Phosphatase 109 Total Protein 7.3 Albumin 3.0 L Syphilis Serology Non-reactive labs noted low H:H; iron supplement ordered aaox3 lying in bed no acute distress Assessment: 02/06/20 10:32 withdrawals Plan: continue detox increase fluids covid pending iron supplement ordered repeat labs
[2020-02-06] MEDS: FERROUS SO4 325 MG TABLET (FP) PO SCH ×2 (12:24→17:40)
[2020-02-06] MEDS: THIAMINE HCL 100 MG TABLET (FP) PO SCH (22:06)
[2020-02-06] MEDS: MELATONIN 5 MG TABLETS PO SCH (23:00)
[2020-02-07] MEDS ORDERED: chlordiazePOXIDE HCL 25 MG CAPSULE PO SCH (05:00)
[2020-02-07] MEDS: FERROUS SO4 325 MG TABLET (FP) PO SCH ×3 (07:13→18:20)
[2020-02-07] MEDS ORDERED: METHADONE HCL 10 MG TABLET (FOR DETOX USE ONLY) PO ONE (10:00)
--- NOTE | 2020-02-07 10:05 | PN ---
[facility] CIWA - CIWA Score Nausea/Vomitin-No Nausea/No Vomiting Muscle Tremors: 3 Anxiety: 3 Agitation: 3 Paroxysmal Sweats: 3 Orientation: 0-Oriented Tacttile Disturbances: 0-None Auditory Disturbances: 0-None Visual Disturbances: 0-None Headache: 0-None Present CIWA-Ar Total Score: 12 S COWS - Scale Resting Pulse: 0= [place] 80 or Below Sweatin= Chills/Flushing Restless Observation: 1= Difficult to Sit Still Pupil Size: 0= Normal to Room Light Bone or Joint Aches: 2= Severe Diffuse Aches Runny Nose/ Eye Tearin= Nasal Congestion GI Upset > 30mins: 1= Stomach Cramp Tremor Observation of Outstretched Hands: 1= Tremor [place], Not Seen Yawning Observation: 1= 1-2x During Session Anxiety or Irritability: 2=Irritable/Anxious Goose Flesh Skin: 0=Smooth Skin COWS Score: 10 [facility] Progress Note (SOAP) Subjective: sweats shakes the librium is making me too sedated and is making me worse body aches irritable Objective: 02/07/20 10:03 Vital Signs Temperature 97.8 F 02/07/20 08:38 Pulse Rate 6 L 02/07/20 08:38 Respiratory Rate 18 02/07/20 08:38 Blood Pressure 135/79 02/07/20 08:38 O2 Sat by Pulse Oximetry (%) 100 02/07/20 05:11 Laboratory Tests 02/05/20 02/05/20 02/05/20 14:30 14:30 14:30 WBC 4.2 RBC 3.93 L Hgb 9.8 L Hct 30.7 L D MCV 78.2 L MCH 25.0 L MCHC 32.0 RDW 17.4 H Plt Count 316 MPV 7.7 Sodium 143 Potassium 4.0 Chloride 106 Carbon Dioxide 31 Anion Gap 6 L BUN 18.3 H Creatinine 0.9 Est GFR (CKD-EPI)AfAm 115.02 Est GFR (CKD-EPI)NonAf 99.24 Random Glucose 109 H Calcium 8.7 Total Bilirubin 0.5 AST 26 ALT 27 Alkaline Phosphatase 109 Total Protein 7.3 Albumin 3.0 L Syphilis Serology Non-reactive repeated labs pending aaox3 ambulating no acute distress Assessment: 02/07/20 10:03 withdrawals Plan: d/c librium ordered valium taper starting today for continued detox increase fluids
[2020-02-07] MEDS: PRENATAL VITAMINS W/ FOLIC ACID TABLET (FP) PO SCH (10:53)
[2020-02-07] MEDS: NICOTINE 21 MG/24 HOURS TOPICAL PATCH TD SCH (10:53)
[2020-02-07] MEDS: diazePAM 5 MG TABLET PO PRN (10:55)
[2020-02-07] MEDS: MAGNESIUM HYDROX 2400MG/30ML ORAL SUSPENSION 30 ML CUP PO PRN (10:55)
[2020-02-07] MEDS: BACITRACIN 15 GM TUBE TOPICAL OINTMENT TP SCH (13:52)
[2020-02-07] MEDS: diazePAM 5 MG TABLET PO SCH ×2 (13:52→22:17)
[2020-02-07] MEDS: MINERAL OIL/PETROLAT/WATER TOPICAL CREAM 454 GM JAR TP SCH ×2 (13:53→22:20)
[2020-02-07] MEDS: THIAMINE HCL 100 MG TABLET (FP) PO SCH (22:17)
[2020-02-07] MEDS: MELATONIN 5 MG TABLETS PO SCH (22:20)
[2020-02-08] MEDS ORDERED: chlordiazePOXIDE HCL 10 MG CAPSULE PO PRN
[2020-02-08] MEDS ORDERED: chlordiazePOXIDE HCL 10 MG CAPSULE PO SCH (05:00)
[2020-02-08] MEDS: diazePAM 5 MG TABLET PO SCH ×3 (05:42→22:01)
[2020-02-08] MEDS: MAGNESIUM HYDROX 2400MG/30ML ORAL SUSPENSION 30 ML CUP PO PRN (05:42)
[2020-02-08] MEDS: FERROUS SO4 325 MG TABLET (FP) PO SCH ×3 (07:38→18:25)
[2020-02-08] MEDS ORDERED: METHADONE HCL 10 MG TABLET (FOR DETOX USE ONLY) ONE (09:55)
[2020-02-08] MEDS ORDERED: METHADONE HCL 5 MG TABLET (FOR DETOX USE ONLY) ONE (09:55)
[2020-02-08] MEDS ORDERED: METHADONE (DETOX) 10 MG, METHADONE (DETOX) 5 MG PO ONE (10:00)
[2020-02-08 10:44] LABS: BASO % 1.2 % (0-2.0); EOS % 4.5 % (0-4.5); HEMOGLOBIN 12.1 GM/dL (11.7-16.9); LYMPH % 30.7 % (8-40); MCH 24.3 pg (25.7-33.7); MCHC 31.7 g/dl (32.0-35.9); MEAN CELL VOLUME 76.9 fl (80-96); MEAN PLT VOLUME 7.6 fl (7.5-11.1); MONO % 9.2 % (3.8-10.2); NEUT % 54.4 % (42.8-82.8); PLATELET COUNT 294 K/MM3 (134-434); RBC 4.95 M/mm3 (4.00-5.60); RDW 17.4 % (11.9-15.9); WHITE BLOOD COUNT 4.9 K/mm3 (4.0-10.0)
[2020-02-08 10:54] LABS: ALBUMIN 3.2 g/dl (3.4-5.0); BILIRUBIN,TOTAL 0.3 mg/dL (0.2-1); BLOOD UREA NITROGEN 16.9 mg/dL (7-18); CALCIUM 9.2 mg/dL (8.5-10.1); POTASSIUM 4.6 mmol/L (3.5-5.1); TOT PROT 7.7 g/dl (6.4-8.2)
[2020-02-08] MEDS: BACITRACIN 15 GM TUBE TOPICAL OINTMENT TP SCH (11:22)
[2020-02-08] MEDS: PRENATAL VITAMINS W/ FOLIC ACID TABLET (FP) PO SCH (11:22)
[2020-02-08] MEDS: MINERAL OIL/PETROLAT/WATER TOPICAL CREAM 454 GM JAR TP SCH ×2 (11:24→22:05)
[2020-02-08] MEDS: NICOTINE 21 MG/24 HOURS TOPICAL PATCH TD SCH (11:25)
[2020-02-08] MEDS: diazePAM 5 MG TABLET PO PRN (11:27)
--- NOTE | 2020-02-08 11:51 | PN ---
[facility] CIWA - CIWA Score Nausea/Vomitin-No Nausea/No Vomiting Muscle Tremors: 3 Anxiety: 2 Agitation: 2 Paroxysmal Sweats: 2 Orientation: 0-Oriented Tacttile Disturbances: 0-None Auditory Disturbances: 0-None Visual Disturbances: 0-None Headache: 0-None Present CIWA-Ar Total Score: 9 [facility] COWS - Scale Resting Pulse: 0= [place] 80 or Below Sweatin= Chills/Flushing Restless Observation: 1= Difficult to Sit Still Pupil Size: 0= Normal to Room Light Bone or Joint Aches: 1= Mild Discomfort Runny Nose/ Eye Tearin= None GI Upset > 30mins: 1= Stomach Cramp Tremor Observation of Outstretched Hands: 1= Tremor [place], Not Seen Yawning Observation: 1= 1-2x During Session Anxiety or Irritability: 1=Feels Anxious/Irritable Goose Flesh Skin: 0=Smooth Skin COWS Score: 7 S Progress Note (SOAP) Subjective: sweats shakes interrupted sleep stomach cramping restless Objective: 02/08/20 11:47 Vital Signs Temperature 97.8 F 02/08/20 08:43 Pulse Rate 57 L 02/08/20 08:43 Respiratory Rate 16 02/08/20 08:43 Blood Pressure 147/76 02/08/20 08:43 O2 Sat by Pulse Oximetry (%) 100 02/08/20 05:27 Laboratory Tests 02/05/20 02/05/20 02/05/20 10:00 14:30 14:30 WBC 4.2 RBC 3.93 L Hgb 9.8 L Hct 30.7 L D MCV 78.2 L MCH 25.0 L MCHC 32.0 RDW 17.4 H Plt Count 316 MPV 7.7 Absolute Neuts (auto) Neutrophils % Lymphocytes % Monocytes % Eosinophils % Basophils % Nucleated RBC % Sodium 143 Potassium 4.0 Chloride 106 Carbon Dioxide 31 Anion Gap 6 L BUN 18.3 H Creatinine 0.9 Est GFR (CKD-EPI)AfAm 115.02 Est GFR (CKD-EPI)NonAf 99.24 Random Glucose 109 H Calcium 8.7 Total Bilirubin 0.5 AST 26 ALT 27 Alkaline Phosphatase 109 Total Protein 7.3 Albumin 3.0 L Syphilis Serology COVID-19 ([facility]) Not detected 02/05/20 02/08/20 02/08/20 14:30 08:00 08:00 WBC 4.9 RBC 4.95 Hgb 12.1 Hct 38.0 D MCV 76.9 L MCH 24.3 L MCHC 31.7 L RDW 17.4 H Plt Count 294 MPV 7.6 Absolute Neuts (auto) 2.7 Neutrophils % 54.4 Lymphocytes % 30.7 Monocytes % 9.2 Eosinophils % 4.5 Basophils % 1.2 Nucleated RBC % 0 Sodium 140 Potassium 4.6 Chloride 104 Carbon Dioxide 31 Anion Gap 4 L BUN 16.9 Creatinine 1.0 Est GFR (CKD-EPI)AfAm 101.26 Est GFR (CKD-EPI)NonAf 87.37 Random Glucose 89 Calcium 9.2 Total Bilirubin 0.3 AST 22 ALT 26 Alkaline Phosphatase 106 Total Protein 7.7 Albumin 3.2 L Syphilis Serology Non-reactive COVID-19 ([facility]NY) labs noted. H:H improved with current iron supplement aaox3 ambulating no acute distress Assessment: 02/08/20 11:51 withdrawals Plan: continue detox clonidine 0.1mg bid with parameters.
[2020-02-08] MEDS: cloNIDine HCL 0.1 MG TABLET PO SCH ×2 (12:30→22:00)
[2020-02-08] MEDS: THIAMINE HCL 100 MG TABLET (FP) PO SCH (22:01)
[2020-02-08] MEDS: MELATONIN 5 MG TABLETS PO SCH (22:05)
[2020-02-09] MEDS ORDERED: chlordiazePOXIDE HCL 10 MG CAPSULE PO SCH (05:00)
[2020-02-09] MEDS: diazePAM 5 MG TABLET PO SCH ×2 (05:34→18:43)
[2020-02-09] MEDS: FERROUS SO4 325 MG TABLET (FP) PO SCH ×3 (07:40→18:43)
[2020-02-09] MEDS ORDERED: METHADONE HCL 10 MG TABLET (FOR DETOX USE ONLY) PO ONE (10:00)
[2020-02-09] MEDS: cloNIDine HCL 0.1 MG TABLET PO SCH ×2 (10:09→22:30)
[2020-02-09] MEDS: NICOTINE 21 MG/24 HOURS TOPICAL PATCH TD SCH (10:09)
[2020-02-09] MEDS: MINERAL OIL/PETROLAT/WATER TOPICAL CREAM 454 GM JAR TP SCH ×2 (10:10→22:31)
[2020-02-09] MEDS: PRENATAL VITAMINS W/ FOLIC ACID TABLET (FP) PO SCH (10:10)
[2020-02-09] MEDS: BACITRACIN 15 GM TUBE TOPICAL OINTMENT TP SCH (10:10)
--- NOTE | 2020-02-09 10:26 | PN ---
[facility] CIWA - CIWA Score Nausea/Vomitin-No Nausea/No Vomiting Muscle Tremors: 2 Anxiety: 1-Mildly Anxious Agitation: 1-Slight > Activity Paroxysmal Sweats: 1-Minimal Palms Moist Orientation: 0-Oriented Tacttile Disturbances: 0-None Auditory Disturbances: 0-None Visual Disturbances: 0-None Headache: 0-None Present CIWA-Ar Total Score: 5 BHS COWS - Scale Resting Pulse: 0= [place] 80 or Below Sweatin= Chills/Flushing Restless Observation: 0= Sits Still Pupil Size: 0= Normal to Room Light Bone or Joint Aches: 1= Mild Discomfort Runny Nose/ Eye Tearin= None GI Upset > 30mins: 0= None Tremor Observation of Outstretched Hands: 1= Tremor [place], Not Seen Yawning Observation: 1= 1-2x During Session Anxiety or Irritability: 1=Feels Anxious/Irritable Goose Flesh Skin: 0=Smooth Skin COWS Score: 5 [facility] Progress Note (SOAP) Subjective: feeling better little sweats Objective: 02/09/20 10:25 Vital Signs Temperature 97.3 F L 02/09/20 08:25 Pulse Rate 68 02/09/20 08:25 Respiratory Rate 18 02/09/20 08:25 Blood Pressure 151/64 02/09/20 08:25 O2 Sat by Pulse Oximetry (%) 99 02/09/20 06:30 aaox3 ambulating no acute distress Assessment: 02/09/20 10:25 withdrawals Plan: continue detox d/c in am
[2020-02-09] MEDS: diazePAM 5 MG TABLET PO PRN ×3 (11:10→22:32)
[2020-02-09] MEDS: THIAMINE HCL 100 MG TABLET (FP) PO SCH (22:30)
[2020-02-09] MEDS: MELATONIN 5 MG TABLETS PO SCH (22:31)
[2020-02-09 22:49] VITALS: TEMP 97.8
[2020-02-10] MEDS ORDERED: chlordiazePOXIDE HCL 10 MG CAPSULE PO ONE (05:00)
[2020-02-10 05:53] VITALS: BP 116/68; PULSE 60
[2020-02-10] MEDS ORDERED: METHADONE HCL 5 MG TABLET (FOR DETOX USE ONLY) PO ONE (06:00)
[2020-02-10] MEDS ORDERED: diazePAM 5 MG TABLET PO ONE (06:00)
--- NOTE | 2020-02-10 16:14 | DS ---
[facility] Detox Discharge Summary Admission Date: 02/05/20 Discharge Date: 02/10/20 - History Present History: Alcohol Dependence, Opioid Dependence, Sedative Dependence Additional Comments: Patient initially scheduled to go to [facility] ([place], [place]) after Discharge form Detox unit today. However, Patient changed his mind and elected to go home instead. Patient advised to consider Local 12-Step / NA / AA outpatient support group programs for aftercare. Patient verbalized understanding of recommendation. Patient was discharged from Detox Unit in stable medical condition. Pertinent Past History: Nicotine Dependence, Hypertension (Borderline), History of Iron-Deficiency Anemia, History of Asthma (during Childhood), History of Depression, Anxiety, History of Acid Reflux. - Physical Exam Results Vital Signs: Vital Signs Temperature 97.8 F 02/10/20 05:17 Pulse Rate 60 02/10/20 05:17 Respiratory Rate 16 02/10/20 05:17 Blood Pressure 116/68 02/10/20 05:17 O2 Sat by Pulse Oximetry (%) 100 02/10/20 05:17 Pertinent Admission Physical Exam Findings: WITHDRAWAL SYMPTOMS. Laboratory Tests 02/05/20 02/05/20 02/05/20 10:00 14:30 14:30 WBC 4.2 RBC 3.93 L Hgb 9.8 L Hct 30.7 L D MCV 78.2 L MCH 25.0 L MCHC 32.0 RDW 17.4 H Plt Count 316 MPV 7.7 Absolute Neuts (auto) Neutrophils % Lymphocytes % Monocytes % Eosinophils % Basophils % Nucleated RBC % Sodium 143 Potassium 4.0 Chloride 106 Carbon Dioxide 31 Anion Gap 6 L BUN 18.3 H Creatinine 0.9 Est GFR (CKD-EPI)AfAm 115.02 Est GFR (CKD-EPI)NonAf 99.24 Random Glucose 109 H Calcium 8.7 Total Bilirubin 0.5 AST 26 ALT 27 Alkaline Phosphatase 109 Total Protein 7.3 Albumin 3.0 L Syphilis Serology COVID-19 ([facility]) Not detected 02/05/20 02/08/20 02/08/20 14:30 08:00 08:00 WBC 4.9 RBC 4.95 Hgb 12.1 Hct 38.0 D MCV 76.9 L MCH 24.3 L MCHC 31.7 L RDW 17.4 H Plt Count 294 MPV 7.6 Absolute Neuts (auto) 2.7 Neutrophils % 54.4 Lymphocytes % 30.7 Monocytes % 9.2 Eosinophils % 4.5 Basophils % 1.2 Nucleated RBC % 0 Sodium 140 Potassium 4.6 Chloride 104 Carbon Dioxide 31 Anion Gap 4 L BUN 16.9 Creatinine 1.0 Est GFR (CKD-EPI)AfAm 101.26 Est GFR (CKD-EPI)NonAf 87.37 Random Glucose 89 Calcium 9.2 Total Bilirubin 0.3 AST 22 ALT 26 Alkaline Phosphatase 106 Total Protein 7.7 Albumin 3.2 L Syphilis Serology Non-reactive COVID-19 ([facility]) Lab Result Noted. - Treatment Hospital Course: Detox Protocol Followed, Detoxed Safely, Responded well, Discharged Condition Good Patient has Accepted a Rehab Referral to: Pt advised to consider Local 12-Step / NA / AA outpatient support groups. - Medication Discharge Medications: Ambulatory Orders NK [No Known Home Medication] 06/11/17 - Diagnosis (1) Alcohol dependence with uncomplicated withdrawal Status: Acute (2) Benzodiazepine dependence Status: Acute (3) Nicotine dependence Status: Acute Qualifiers: Nicotine product type: cigarettes Substance use status: uncomplicated Qualified Code(s): F17.210 - Nicotine dependence, cigarettes, uncomplicated (4) Opioid dependence with withdrawal Status: Acute - AMA Did Patient Leave Against Medical Advice: No
== END 2020-02-10 09:17 | disposition home or self-care (01) | DRG 773 ==
LOC: YASAS 12:28 → Y6N 14:52
PROVIDERS: ADMIT Allergy & Immunology; ATTEND Allergy & Immunology
PROC: HZ2ZZZZ Detoxification Services for Substance Abuse Treatment (ICD-10-PCS; principal; 2020-02-05)
DX: F11.23 Opioid dependence with withdrawal (principal); F10.230 Alcohol dependence with withdrawal, uncomplicated; F13.20 Sedative, hypnotic or anxiolytic dependence, uncomplicated; F17.210 Nicotine dependence, cigarettes, uncomplicated; D50.9 Iron deficiency anemia, unspecified; K21.9 Gastro-esophageal reflux disease without esophagitis; Z91.018 Allergy to other foods; Z59.0 Homelessness
CPT/HCPCS: 36415; 80053; 85025; 85027; 86780; 93005; 93010; J0735; U0003

== ENCOUNTER 2020-04-05 16:34 | Inpatient (IN) | payer OTHER ==
[2020-04-05 17:49] VITALS: BP 120/72; PULSE 78; TEMP 97.3; BMI 23.7
--- NOTE | 2020-04-05 19:24 | HP ---
COWS - Scale Resting Pulse: 0= [place] 80 or Below Sweatin=Flushed/Facial Moisture Restless Observation: 0= Sits Still Pupil Size: 0= Normal to Room Light Bone or Joint Aches: 4=Acute Joint/Muscle Pain Runny Nose/ Eye Tearin= Runny Nose/Eyes GI Upset > 30mins: 3= Vomiting/Diarrhea (vomiting x 1, no diarrhea) Tremor Observation: 4= Gross Tremor/Twitching Yawning Observation: 1= 1-2x During Session Anxiety or Irritability: 4=Extreme Anxiety Goose Flesh Skin: 0=Smooth Skin COWS Score: 20 CIWA Score Nausea/Vomitin (vomiting x 1) Muscle Tremors: 5 Anxiety: 4-Mod. Anxious/Guarded Agitation: 4-Moderately Restless Paroxysmal Sweats: 2 Orientation: 1-Uncertain about Date Tacttile Disturbances: 0-None Auditory Disturbances: 0-None Visual Disturbances: 0-None Headache: 3-Moderate CIWA-Ar Total Score: 21 - Admission Criteria [facility] Guidelines: Admission for Medically Managed Detox: Requires at least one of the followin. CIWA greater than 12 2. Seizures within the past 24 hours 3. Delirium tremens within the past 24 hours 4. Hallucinations within the past 24 hours 5. Acute intervention needed for co occurring medical disorder 6. Acute intervention needed for co occurring psychiatric disorder 7. Severe withdrawal that cannot be handled at a lower level of care (continued vomiting, continued diarrhea, abnormal vital signs) requiring intravenous medication and/or fluids 8. Admitting History and Physical - Smoking History Smoking history: Current every day smoker Have you smoked in the past 12 months: Yes Aproximately how many cigarettes per day: 20 - Alcohol/Substance Use Hx Alcohol Use: Yes Admission [facility] Chief Complaint: Alcohol and heroin withdrawal symptoms Allergies/Adverse Reactions: Allergies Allergy/AdvReac Type Severity Reaction Status Date / Time No Known Drug Allergies Allergy Verified 02/05/20 14:45 soy AdvReac Severe Vomiting Verified 02/05/20 14:45 History of Present Illness: 49 years old male with a long history of alcohol and heroin dependence is seekin admission to detox. His last admission was for the period 02/05/2020- 02/10/2020 and he relapsed a week post discharge. he uses 12-18 bags of heroin and drinks 1/2 pint of Vodka and 10 x 20oz. beer daily. He has medical history of asthma, anemia, hypertension, GERD, Psych. history of depression and anxiety. He denies suicidal ideation at this time. He is unemployed, lives in a fdc and denies any legal issues. 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 Exam Limitations: Clinical Condition (right leg swelling) - Ebola screening Have you traveled outside of the country in the last 21 days: No Have you had contact with anyone from an Ebola affected area: No Have you been sick,other than usual withdrawal symptoms: No Do you have a fever: No - Review of Systems Constitutional: Chills, Malaise, Night Sweats, Changes in sleep EENT: reports: Nose Congestion Respiratory: reports: No Symptoms reported Cardiac: reports: No Symptoms Reported GI: reports: Nausea, Poor Fluid Intake, Vomiting, Abdominal cramping : reports: No Symptoms Reported Musculoskeletal: reports: Back Pain, Muscle Pain Integumentary: reports: Dryness, Erythema, Flushing, Sweating Neuro: reports: Headache, Tremors Endocrine: reports: No Symptoms Reported Hematology: reports: No Symptoms Reported Psychiatric: reports: Agitated, Anxious, Depressed Other Systems: Reviewed and Negative Patient History - Patient Medical History Hx Anemia: Yes (Iron-deficieny type; Only treated with Dietary modification in past.) Hx Asthma: Yes (Not on medication) Hx Chronic Obstructive Pulmonary Disease (COPD): No Hx Cancer: No Hx Cardiac Disorders: No Hx Congestive Heart Failure: No Hx Hypertension: Yes (not on medication) Hx Hypercholesterolemia: No Hx Pacemaker: No HX Cerebrovascular Accident: No Hx Seizures: No Hx Dementia: No Hx Diabetes: No Hx Gastrointestinal Disorders: Yes (GERD - not on medication) Hx Liver Disease: No Hx Genitourinary Disorders: No Hx Sexually Transmitted Disorders: No Hx Renal Disease (ESRD): No Hx Thyroid Disease: No Hx Human Immunodeficiency Virus (HIV): Yes (Negative 2020) Hx Hepatitis C: No Hx Depression: Yes (+ anxiety - Not on medication) Hx Suicide Attempt: No Hx Bipolar Disorder: No Hx Schizophrenia: No - Patient Surgical History Past Surgical History: Yes Hx Neurologic Surgery: No Hx Cataract Extraction: No Hx Cardiac Surgery: No Hx Lung Surgery: No Hx Abdominal Surgery: No Hx Appendectomy: No Hx Cholecystectomy: No Hx Genitourinary Surgery: No Hx Orthopedic Surgery: No Other Surgical History: Hernia at 3 years Anesthesia Reaction: No - PPD History Previous Implant?: Yes Documented Results: Negative w/o proof Implanted On Prior [facility] Admission?: Yes Date: 02/07/20 Results: 0 mm PPD to be Administered?: No - Reproductive History Patient is a Female of Child Bearing Age (11 -55 yrs old): No (male) - Smoking Cessation Smoking history: Current every day smoker Have you smoked in the past 12 months: Yes Aproximately how many cigarettes per day: 30 Cigars Per Day: 0 Hx Chewing Tobacco Use: No Initiated information on smoking cessation: Yes 'Breaking Loose' booklet given: 04/05/20 - Substance & Tx. History Hx Alcohol Use: Yes Hx Substance Use: Yes Substance Use Type: Alcohol, Cocaine, Heroin, Opiates Hx Substance Use Treatment: Yes ([facility]) - Substances abused Alcohol Substance route: Oral Frequency: Daily Amount used: 1/2 pint of Vodka and 10 x 20oz. beer Age of first use: 10 Date of last use: 04/04/20 Heroin Substance route: Inhalation Frequency: Daily Amount used: 12-18 bags of heroin Age of first use: 20 Date of last use: 04/05/20 Admission Physical Exam BHS - Vital Signs Vital Signs: Vital Signs - 24 hr 04/05/20 17:48 Temperature 97.3 F L Pulse Rate 78 Respiratory 18 Rate Blood Pressure 120/72 - Physical General Appearance: Yes: Severe Distress, Tremorous, Sweating, Anxious HEENTM: Yes: Rhinorrhea Respiratory: Yes: Lungs Clear, Normal Breath Sounds, No Respiratory Distress Neck: Yes: Within Normal Limits Breast: Yes: Breast Exam Deferred Cardiology: Yes: Within Normal Limits Abdominal: Yes: Within Normal Limits Genitourinary: Yes: Within Normal Limits Back: Yes: Normal Inspection Musculoskeletal: Yes: Back pain, Muscle Pain Extremities: Yes: Tremors Integumentary: Yes: Warm Lymphatic: Yes: Within Normal Limits - Diagnostic (1) Hypertension Current Visit: Yes Status: Chronic Qualifiers: Hypertension type: essential hypertension Qualified Code(s): I10 - Essential (primary) hypertension (2) Asthma Current Visit: Yes Status: Chronic Qualifiers: Asthma severity: mild Asthma persistence: intermittent (3) depression Current Visit: Yes Status: Acute (4) Alcohol dependence with uncomplicated withdrawal Current Visit: Yes Status: Acute (5) Cocaine dependence, uncomplicated Current Visit: Yes Status: Chronic (6) Nicotine dependence Current Visit: Yes Status: Chronic Qualifiers: Nicotine product type: cigarettes Substance use status: in withdrawal Qualified Code(s): F17.213 - Nicotine dependence, cigarettes, with withdrawal (7) Opioid dependence with withdrawal Current Visit: Yes Status: Acute (8) Anxiety Current Visit: Yes Status: Chronic (9) GERD (gastroesophageal reflux disease) Current Visit: Yes Status: Chronic Qualifiers: Esophagitis presence: esophagitis presence not specified Qualified Code(s): K21.9 - Gastro-esophageal reflux disease without esophagitis (10) History of iron deficiency anemia Current Visit: Yes Status: Chronic Cleared for Admission S - Detox or Rehab [facility] Level of Care: Medically Managed Detox Regimen/Protocol: Methadone/Valium Claeared for Rehab Admission: No Breathalyzer - Breathalyzer Breathalyzer: 0 Urine Drug Screen - Test Device Lot number: [id number] Expiration date: 04/15/22 - Control Is test valid?: Yes - Results Drug screen NEGATIVE: No Urine drug screen results: LUIS ALBERTO-Cocaine, FEN-Fentanyl, MOP-Opiates, OXY- Oxycodone, MTD-Methadone Inpatient Rehab Admission - Rehab Decision to Admit Inpatient rehab admission?: No
[2020-04-05] MEDS ORDERED: hydrOXYzine PAMOATE 25 MG CAPSULE (FP) PO PRN (19:44)
[2020-04-05] MEDS ORDERED: MAGNESIUM CITRATE 300 ML BOTTLE PO PRN (19:44)
[2020-04-05] MEDS ORDERED: ACETAMINOPHEN 325 MG TABLET (FP) PO PRN ×2 (19:44)
[2020-04-05] MEDS ORDERED: MAG HYDROX/AL HYDROX/SIMETH 30 ML UNIT-DOSE CUP PO PRN (19:44)
[2020-04-05] MEDS ORDERED: BISMUTH SUBSALICYLATE 524 MG/30 ML UD PO PRN (19:44)
[2020-04-05] MEDS ORDERED: IBUPROFEN 400 MG TABLET (FP) PO PRN (19:44)
[2020-04-05] MEDS ORDERED: ONDANSETRON *ODT* 4 MG TABLET SL ONE (19:44)
[2020-04-05] MEDS ORDERED: MENTHOL/PHENOL 1 EACH UD MM PRN (19:44)
[2020-04-05] MEDS ORDERED: METHOCARBAMOL 500 MG TABLET PO PRN (19:44)
[2020-04-05] MEDS ORDERED: NICOTINE POLACRILEX 2 MG GUM BUC PRN (19:44)
[2020-04-05] MEDS ORDERED: MAGNESIUM HYDROX 2400MG/30ML ORAL SUSPENSION 30 ML CUP PO PRN (19:44)
--- NOTE | 2020-04-05 19:52 | PN ---
[facility] Progress Note Note: Patient is being transferred to ER to evaluate right lower extremity for DVT. Patient's right leg is swollen, painful, hard to touch and pedal pulse not palpable. Endorsed to Dr. Cervantes Vital Signs Temperature 97.3 F L 04/05/20 17:48 Pulse Rate 78 04/05/20 17:48 Respiratory Rate 18 04/05/20 17:48 Blood Pressure 120/72 04/05/20 17:48 O2 Sat by Pulse Oximetry (%) Action: Transfer patient to ER
[2020-04-05] MEDS ORDERED: METHADONE HCL 10 MG TABLET PO ONE (20:09)
[2020-04-05] MEDS ORDERED: METHADONE HCL 10 MG TABLET (FOR DETOX USE ONLY) ONE (20:16)
[2020-04-05] MEDS ORDERED: MELATONIN 5 MG TABLETS PO SCH (22:00)
[2020-04-05] MEDS ORDERED: THIAMINE HCL 100 MG TABLET (FP) PO SCH (22:00)
[2020-04-06] MEDS ORDERED: NICOTINE 21 MG/24 HOURS TOPICAL PATCH TD SCH (10:00)
[2020-04-06] MEDS ORDERED: PRENATAL VITAMINS W/ FOLIC ACID TABLET (FP) PO SCH (10:00)
== END 2020-04-05 23:52 | disposition short-term general hospital (02) | DRG 773 ==
LOC: YASAS 16:34 → Y3N 19:50
PROVIDERS: ADMIT Allergy & Immunology; ATTEND Allergy & Immunology
PROC: HZ2ZZZZ Detoxification Services for Substance Abuse Treatment (ICD-10-PCS; principal; 2020-04-05)
DX: F10.230 Alcohol dependence with withdrawal, uncomplicated (principal); F11.23 Opioid dependence with withdrawal; F17.213 Nicotine dependence, cigarettes, with withdrawal; F41.9 Anxiety disorder, unspecified; F32.9 Major depressive disorder, single episode, unspecified; D50.9 Iron deficiency anemia, unspecified; I10 Essential (primary) hypertension; J45.20 Mild intermittent asthma, uncomplicated; K21.9 Gastro-esophageal reflux disease without esophagitis; M79.89 Other specified soft tissue disorders; M79.661 Pain in right lower leg; Z56.0 Unemployment, unspecified; Z59.0 Homelessness
CPT/HCPCS: Q0162

== ENCOUNTER 2020-04-05 20:43 | Inpatient (IN) | payer OTHER ==
--- NOTE | 2020-04-05 22:43 | PDOC ---
History of Present Illness - General Chief Complaint: Pain Stated Complaint: FOOT PAIN Time Seen by Provider: 04/05/20 21:50 History Source: Patient - History of Present Illness Initial Comments: 04/06/20 00:03 49M w/hx peripheral vascular disease, opiate use disorder, etoh use disorder (last drink 18 hours prior to arrival) transferred from [facility] for evaluation of RLE swelling. He reports no change in his RLE from baseline. He reports long history of "bad circulation" and has not been able to follow up secondary to polysubstance use disorder. He denies any pain, poikilothermia, paresthesias, w eakness, or any change in sensation in the RLE. Past History - Medical History Allergies/Adverse Reactions: Allergies Allergy/AdvReac Type Severity Reaction Status Date / Time No Known Drug Allergies Allergy Verified 04/05/20 20:50 soy AdvReac Severe Vomiting Verified 04/05/20 20:50 Home Medications: Ambulatory Orders NK [No Known Home Medication] 06/11/17 Anemia: Yes (Iron-deficieny type; Only treated with Dietary modification in past.) Asthma: Yes (Not on medication) Cancer: No Cardiac Disorders: No CVA: No COPD: No CHF: No Dementia: No Diabetes: No GI Disorders: Yes (GERD - not on medication) Disorders: No HTN: Yes (not on medication) Hypercholesterolemia: No Kidney Stones: No Liver Disease: No Seizures: No Thyroid Disease: No - Surgical History Abdominal Surgery: No Appendectomy: No Cardiac Surgery: No Cholecystectomy: No Lung Surgery: No Neurologic Surgery: No Orthopedic Surgery: No - Reproductive History Testicular Surgery: No - Psycho-Social/Smoking History Smoking History: Never smoked Have you smoked in the past 12 months: Yes Number of Cigarettes Smoked Daily: 30 Cigars Per Day: 0 'Breaking Loose' booklet given: 04/05/20 - Substance Abuse Hx (Audit-C & DAST Scrn) How often the patient has a drink containing alcohol: 4 0r more times/wk Score: In Men: 4 or > Positive; In Women: 3 or > Positive: 4 Screen Result (Pos requires Nsg. Audit-10AR): Positive In the last yr the pt used illegal drug/Rx for NonMed reason: Yes Score: Yes response is considered Positive: 1 Screen Result (Positive result requires Nsg. DAST-10): Positive Review of Systems - Review of Systems Able to Perform ROS?: Yes Comments:: GENERAL/CONSTITUTIONAL: No fever or chills. No weakness. HEAD, EYES, EARS, NOSE AND THROAT: No change in vision. No ear pain or discharge. No sore throat. CARDIOVASCULAR: No chest pain or shortness of breath RESPIRATORY: No cough, wheezing, or hemoptysis. GASTROINTESTINAL: No nausea, vomiting, diarrhea or constipation. GENITOURINARY: No dysuria, frequency, or change in urination. MUSCULOSKELETAL: No joint or muscle swelling or pain. No neck or back pain. SKIN: No rash NEUROLOGIC: No headache, vertigo, loss of consciousness, or change in strength/sensation. ENDOCRINE: No increased thirst. No abnormal weight change HEMATOLOGIC/LYMPHATIC: No anemia, easy bleeding, or history of blood clots. ALLERGIC/IMMUNOLOGIC: No hives or skin allergy. *Physical Exam - Vital Signs Last Vital Signs Temp Pulse Resp BP Pulse Ox 98.1 F 64 18 156/81 100 04/05/20 20:48 04/05/20 20:48 04/05/20 20:48 04/05/20 20:48 04/05/20 20:48 - Physical Exam 04/06/20 00:11 GENERAL: Awake, alert, and fully oriented, in no acute distress HEAD: No signs of trauma, normocephalic, atraumatic EYES: PERRLA, EOMI, sclera anicteric, conjunctiva clear ENT: Auricles normal inspection, hearing grossly normal, nares patent, oropharynx clear without exudates. Moist mucosa NECK: Normal ROM, supple, no lymphadenopathy, JVD, or masses LUNGS: No distress, speaks full sentences, clear to auscultation bilaterally HEART: Regular rate and rhythm, normal S1 and S2, no murmurs, rubs or gallops, peripheral pulses normal and equal bilaterally. ABDOMEN: Soft, nontender, normoactive bowel sounds. No guarding, no rebound. No masses EXTREMITIES : RLE edema, vascular skin congestion, firm. No clubbing or cyanosi s. Sensation intact to soft touch equally between lower extremities. NEUROLOGICAL: Cranial nerves II through XII grossly intact. Normal speech, normal gait, no focal sensorimotor deficits SKIN: Warm, Dry, normal turgor, no rashes or lesions noted ED Treatment Course - RADIOLOGY Radiology Studies Ordered: Category Date Time Status DUPLEX ART. LOWER COMPL US [US] Stat Ultrasound 04/05/20 22:35 Ordered DUPLEX VASCUL US-2LEGS [US] Stat Ultrasound 04/05/20 22:35 Ordered Medical Decision Making - Medical Decision Making 04/06/20 00:12 49M w/hx polysubstance use (opiates, EtOH) transferred from [facility] for evaluation of RLE. No acute change in limb. Ddx DVT, arterial occlusion, chronic peripheral vascular disease. Plan: US LE to eval for DVT, arterial occlusion Dispo: Discharge to [facility] pending US Discharge - Discharge Information Problems reviewed: Yes Clinical Impression/Diagnosis: Leg swelling - Follow up/Referral - Patient Discharge Instructions - Post Discharge Activity
--- NOTE | 2020-04-05 23:26 | PDOC ---
Documentation entered by Perla Hong SCRIBE, acting as scribe for Tessie Preston MD. Tessie Preston MD: This documentation has been prepared by the taiibe, Perla Hong SCRIBE, under my direction and personally reviewed by me in its entirety. I confirm that the documentation accurately reflects all work, treatment, procedures, and medical decision making performed by me. Attending Attestation - Resident Resident Name: DeliaTam - ED Attending Attestation I have performed the following: I have examined & evaluated the patient, The case was reviewed & discussed with the resident, I agree w/resident's findings & plan, Exceptions are as noted - HPI HPI: 04/05/20 22:33 Patient is a 49 year old male with a significant past medical history of PSA (etoh, cocaine, heroin) presents to the ED with R leg swelling. Pt presented to [facility] today for detox, but was sent here for medical evaluation. He reports the swelling to his right lower extremity has been there for more than a year. He denies any recent trauma. He denies any recent change in the swelling to the right lower extremity. He denies any pain, numbness, or color change to the right lower extremity. Has not sought care for the swelling in the past. Denies any IV drug use in the right lower extremity Patient denies fevers, chills, headache, dizziness, chest pain, shortness of breath, abdominal pain, nausea, vomiting, diarrhea, urinary symptoms. Allergies: NKDA, soy - Physicial Exam PE: 04/05/20 23:17 Agree with resident exam - Medical Decision Making 04/05/20 23:17 49yo M presents to the ED with >1 year of RLE extremity swelling. Presents from [facility] where he is admitted for detox from heroin, etoh, and cocaine. On exam RLE is warm, with normal color, sensation and non tender. There is non pitting edema and thus it is difficult to palpate a DP pulse Pt denies trauma, thus will defer XR Will obtain arterial and venous US to evaluate for any arterial stenosis/blockage and DVT and reassess Discharge - Discharge Information Problems reviewed: Yes Clinical Impression/Diagnosis: Leg swelling - Follow up/Referral - Patient Discharge Instructions - Post Discharge Activity
--- NOTE | 2020-04-06 00:44 | PDOC ---
*Physical Exam - Vital Signs Last Vital Signs Temp Pulse Resp BP Pulse Ox 98.1 F 64 18 156/81 100 04/05/20 20:48 04/05/20 20:48 04/05/20 20:48 04/05/20 20:48 04/05/20 20:48 ED Treatment Course - LABORATORY CBC & Chemistry Diagram: 04/06/20 02:00 04/06/20 02:00 Medical Decision Making - Medical Decision Making 04/06/20 00:43 Pt signed out to us; Patient Name: JESSICA LYNN THIS IS A PRELIMINARY REPORT DATE OF SERVICE: 2020-04-05 23:18:12 IMAGES: 45 EXAM: DUPLEX ART. LOWER COMPL US HISTORY: Evaluate arterial flow COMPARISON: None. FINDINGS: Right lower extremity: Biphasic flow is seen in the right common femoral artery. However monophasic flow is seen throughout the right superficial femoral artery, popliteal artery, and posterior tibial artery. Although not occluded, the monophasic flow suggests severe atherosclerotic stenotic disease of the affected arteries. Left lower extremity: There is biphasic flow throughout the left common femoral artery, superficial femoral artery, popliteal artery, and posterior tibial artery. This indicates moderate atherosclerotic stenotic disease without occlusion of these vessels. Please note that if there are acute signs and symptoms of leg ischemia, CT angiography can be more accurate in detecting the areas of stenosis and occlusion (in vessels that were not evaluated on this study such as the anterior tibial/dorsalis pedis) 04/06/20 01:23 Patient Name: JESSICA LYNN THIS IS A PRELIMINARY REPORT DATE OF SERVICE: 2020-04-05 22:59:30 IMAGES: 91 EXAM bilateral lower extremity duplex venous ultrasound HISTORY: Evaluate deep venous thrombosis COMPARISON: None. FINDINGS Limited study. Patient is noncompliant. Right lower extremity: Positive for venous thrombosis in the right greater saphenous vein at its junction with the right common femoral vein. There is also thrombus in the right greater saphenous vein distally at the level of the knee and calf. Negative for right lower extremity deep venous thrombosis. However, some of the right greater saphenous vein thrombus is very close to the right common femoral vein (which is a deep vein). Left lower extremity: Negative for left lower extremity deep venous thrombosis. Enlarged lymph nodes noted in the bilateral groins. 04/06/20 02:50 Pt will be admitted for vascular surgery evaluation and further eval of potential DVT 04/06/20 02:50 PT WAS TREATED WITH ENOXAPARIN 04/06/20 19:41 Discharge - Discharge Information Problems reviewed: Yes Clinical Impression/Diagnosis: DVT (deep venous thrombosis) Qualifiers: DVT location: lower extremity Affected thrombotic vein of extremity: unspe cified vein of extremity Chronicity: acute Laterality: right Qualified Code(s): I82.401 - Acute embolism and thrombosis of unspecified deep veins of right lower extremity Alcohol withdrawal Qualifiers: Complication of substance-induced condition: uncomplicated Qualified Code(s): F10.230 - Alcohol dependence with withdrawal, uncomplicated Condition: Improved Disposition: AGAINST MEDICAL ADVICE - Admission Yes - Follow up/Referral - Patient Discharge Instructions - Post Discharge Activity
--- NOTE | 2020-04-06 00:51 | PDOC ---
*Physical Exam - Vital Signs Last Vital Signs Temp Pulse Resp BP Pulse Ox 98.1 F 64 18 156/81 100 04/05/20 20:48 04/05/20 20:48 04/05/20 20:48 04/05/20 20:48 04/05/20 20:48 ED Treatment Course - LABORATORY CBC & Chemistry Diagram: 04/06/20 02:00 04/06/20 02:00 Medical Decision Making - Medical Decision Making 04/06/20 00:51 EKG - NSR, HR 62, QTc 430, no ST changes --- 49M w/hx peripheral vascular disease, opiate use disorder, etoh use disorder (last drink 18 hours prior to arrival) transferred from [facility] for evaluation of RLE swelling. He reports no change in his RLE from baseline. He reports long history of "bad circulation" and has not been able to follow up secondary to polysubstance use disorder. He denies any pain, poikilothermia, paresthesias, weakness, or any change in sensation in the RLE. US showed DVT at R greater saphenous vein at junction w R common femoral v, and r greater saphenous v distally at level of knee/calf. Severe atherosclerotic stenotitc disease RLE (right superficial femoral artery, popliteal artery, and posterior tibial artery), moderate disease LLE, no stenosis. No sign of etoh withdrawal Given 80 lovenox, methadone Admit m/s for RLE DVT, etoh withdrawal Discharge - Discharge Information Problems reviewed: Yes Clinical Impression/Diagnosis: DVT (deep venous thrombosis) Qualifiers: DVT location: lower extremity Affected thrombotic vein of extremity: unspecified vein of extremity Chronicity: acute Laterality: right Qualified Code(s): I82.401 - Acute embolism and thrombosis of unspecified deep veins of right lower extremity Alcohol withdrawal Qualifiers: Complication of substance-induced condition: uncomplicated Qualified Code(s): F10.230 - Alcohol dependence with withdrawal, uncomplicated Condition: Improved - Follow up/Referral - Patient Discharge Instructions - Post Discharge Activity
[2020-04-06] MEDS ORDERED: ENOXAPARIN NA (PORCINE) 80 MG/0.8 ML DISP.SYRIN SQ ONE ×2 (01:53→02:21)
[2020-04-06] MEDS ORDERED: METHADONE HCL 10 MG TABLET PO ONE ×2 (02:17→05:44)
[2020-04-06] MEDS ORDERED: METHADONE HCL 10 MG TABLET ONE (02:21)
[2020-04-06 02:22] LABS: BASO % 1.1 % (0-2.0); EOS % 4.8 % (0-4.5); HEMATOCRIT 34.9 % (35.4-49); HEMOGLOBIN 11.4 GM/dL (11.7-16.9); LYMPH % 34.9 % (8-40); MCH 24.4 pg (25.7-33.7); MCHC 32.5 g/dl (32.0-35.9); MEAN PLT VOLUME 6.9 fl (7.5-11.1); MONO % 8.3 % (3.8-10.2); NEUT % 50.9 % (42.8-82.8); PLATELET COUNT 314 K/MM3 (134-434); RBC 4.66 M/mm3 (4.00-5.60); RDW 19.5 % (11.9-15.9); WHITE BLOOD COUNT 5.8 K/mm3 (4.0-10.0)
[2020-04-06 02:32] LABS: INR 1.08 (0.83-1.09); PROTHROMBIN TIME (PATIENT) 12.7 SEC (9.7-13.0)
[2020-04-06 02:34] LABS: ACTIVATED PTT 31.7 SECONDS (25.2-36.5)
[2020-04-06 03:15] LABS: ALBUMIN 3.3 g/dl (3.4-5.0); BILIRUBIN,TOTAL 0.3 mg/dL (0.2-1); BLOOD UREA NITROGEN 13.6 mg/dL (7-18); CALCIUM 9.1 mg/dL (8.5-10.1); CREATININE 0.9 mg/dL (0.55-1.3); TOT PROT 7.3 g/dl (6.4-8.2)
--- NOTE | 2020-04-06 03:33 | PN ---
Teaching Attending Note Name of Resident: Ajay Alva ATTENDING PHYSICIAN STATEMENT I saw and evaluated the patient. I reviewed the resident's note and discussed the case with the resident. I agree with the resident's findings and plan as documented. SUBJECTIVE: Patient is a 49 year old undomiciled man with a PMH of Polysubstance abuse (Alcohol, Cocaine, Heroin), Tobacco use and Peripheral vascular disease who presents from [facility] to the ER with right leg swelling. He reports the swelling to his right lower extremity has been there for more than a year and denies any recent trauma, any recent change in the swelling to the right lower extremity. There is no associated pain, numbness, or color change to the right lower extremity. Has not sought care for the swelling in the past. Denies any IV drug use in the right lower extremity. Patient denies chest pain, shortness of breath, abdominal pain, headache, palpitations, dizziness, fever, chills, nausea, vomiting, diarrhea, constipation, dysuria, frequency, urgency, melena, hematochezia or hematuria. Denies tobacco use. No sick contacts or recent travels. Family history - tatiana had a history of clotting problems, but recently of heart attack and COVID-19 infection. OBJECTIVE: Somnolent but arousable Vital Signs Period Temp Pulse Resp BP Sys/Toscano Pulse Ox Last 24 Hr 98.1 F-98.1 F 64-98 18-18 123-156/68-81 98-100 HEENT: No Jaundice, eye redness or discharge, PERRLA, EOMI. Normocephalic, atraumatic. External ears are normal and hearing is grossly intact. No nasal discharge. Neck: Supple, nontender. No palpable adenopathy or thyromegaly. No JVD Chest: Good effort. Clear to auscultation and percussion. Heart: Regular. No S3, rub or murmur Abdomen: Not distended, soft, nontender and no HSM. No rebound or guarding. Normal bowel sounds. Ext: Diminished right leg peripheral pulses; Right leg edema and erythema. Skin: Warm and dry. No petechiae, rash or ecchymosis. Neuro: Somnolent but arousable. Oriented to person and place. CN 2-12 grossly intact. Sensation grossly intact in all four extremities and DTR are symmetric. Psych: Appropriate mood and affect. Good insight. Home Medications Medication Instructions Recorded NK [No Known Home Medication] 06/11/17 Abnormal Lab Results 04/06/20 04/06/20 02:00 02:00 Hgb 11.4 L Hct 34.9 L MCV 75.0 L MCH 24.4 L RDW 19.5 H MPV 6.9 L Eosinophils % 4.8 H Anion Gap 4 L Albumin 3.3 L Current Medications Generic Name Dose Route Start Last Admin Trade Name Freq PRN Reason Stop Dose Admin Chlordiazepoxide HCl 50 mg 04/06/20 05:00 Librium - PO 04/06/20 23:01 [id number] HÉCTOR Chlordiazepoxide HCl 25 mg 04/07/20 05:00 Librium - PO 04/07/20 23:01 [id number] HÉCTOR Chlordiazepoxide HCl 25 mg 04/06/20 05:42 Librium - PO 04/07/20 05:41 Q4H PRN WITHDRAWAL(CONT SUBST) Chlordiazepoxide HCl 10 mg 04/08/20 05:00 Librium - PO 04/08/20 23:01 [id number] HÉCTOR Chlordiazepoxide HCl 10 mg 04/09/20 05:00 Librium - PO 04/09/20 17:01 Q12H HÉCTOR Chlordiazepoxide HCl 10 mg 04/08/20 00:00 Librium - PO 04/09/20 00:00 Q4H PRN WITHDRAWAL(CONT SUBST) Chlordiazepoxide HCl 10 mg 04/10/20 05:00 Librium - PO 04/10/20 05:01 ONCE@0500 ONE Folic Acid 1 mg/ Thiamine HCl 1,000 mls @ 125 mls/hr 04/06/20 05:35 100 mg/ Multivitamins/Minerals IVPB 04/06/20 13:34 10 ml/ Sodium Chloride ONCE ONE ASSESSMENT AND PLAN: 1. RLE Deep vein thrombosis - Report of Duplex arterial study of lower extremity - Right lower extremity: Biphasic flow is seen in the right common femoral artery. However monophasic flow is seen throughout the right superficial femoral artery, popliteal artery, and posterior tibial artery. Although not occluded, the monophasic flow suggests severe atherosclerotic stenotic disease of theaffected arteries. Left lower extremity: There is biphasic flow throughout the left common femoral artery, superficial femoral artery, popliteal artery, and posterior tibial artery. This indicates moderate atherosclerotic stenotic disease without occlusion of these vessels. Report of bilateral lower extremity duplex venous ultrasound - Right lower extremity: Positive for venous thrombosis in the right greater saphenous vein at its junction with the right common femoral vein. There is also thrombus in the right greater saphenous vein distally at the level of the knee and calf. Negative for right lower extremity deep venous thrombosis. However, some of the right greater saphenous vein thrombus is very close to the right common femoral vein (which is a deep vein). Left lower extremity: Negative for left lower extremity deep venous thrombosis. Enlarged lymph nodes noted in the bilateral groins. Patient got first dose of Lovenox 80 mg sq stat. Will consult [facility] for arterial findings. Viral testing for COVID-19 ordered and patient placed on airborne, droplet and contact isolation. EKG shows NSR at 62/minute and QTc [address]-T wave changes. Initial troponin is negative. Will continue comprehensive care for all of patients comorbid conditions. 2. Polysubstance abuse Got Methadone 20 mg PO in the ER. Will admit to telemetry and monitor closely for drug withdrawal. Will implement [facility] alcohol withdrawal protocol and do neurochecks. Implement seizure, fall and aspiration precautions. Treat with IV Banana bag, thiamine and folic acid. Monitor and replete electrolytes (Ca,Mg,K,P). Counseled patient about abstaining from illicit drugs/alcohol. Will consult computer training specialist and refer to drug/alcohol detox upon discharge. 3. Anemia Likely multifactorial. Will do basic anemia work up including serial stool guaiacs, reticulocyte count and iron studies. 4. Tobacco Use Counseled on risks associated with tobacco use. We will provide patient all the necessary assistance to facilitate smoking cessation and prescribe Nicotine patch. 5. DVT prophylaxis - On full dose Lovenox for RLE DVT. 6. Advance directives - Full code
--- NOTE | 2020-04-06 04:12 | HP ---
CHIEF COMPLAINT: Right leg swelling PCP: HISTORY OF PRESENT ILLNESS: Mr. De Jesus is a 49M w a pmh of peripheral vascular disease, opiate use disorder(8-15bags), etoh use disorder (20oz bottles, 10x, pint Vodka). last drink 18 hours prior to arrival) transferred from [facility] for evaluation of RLE swelling. The patient reports he has been having 4-5mo of RLE swelling with "on and off" episodes in the past few years , asthma, not on any home medications. Patient was brought in as a transfer from [facility] for RLE edema and pain. The patient denies trauma to the area or prolonged periods of sitting. The patient denies feeling sob, tachycardic, palpitations, chest pain or dyspnea. Patients CIWA score is 21, COWS 25, wells 5 (high risk for DVT) ER course was notable for: (1)Right lower extremity: Positive for venous thrombosis in the right greater saphenous vein at its junction with the right common femoral vein. There is also thrombus in the right greater saphenous vein distally at the level of the knee and calf. Negative for right lower extremity deep venous thrombosis. However, some of the right greater saphenous vein thrombus is very close to the right common femoral vein (which is a deep vein). . (2) Active withdrawal from heroin/etoh (3) Reports 30 mg of methadone and valium. Recent Travel: PAST MEDICAL HISTORY: PAST SURGICAL HISTORY: Social History: Smokin.5 20 yrs Alcohol:drinks 12 oz daily Drugs: heroin & cocain speedball fx: mother passed of covid ; heart attacks and clots Allergies No Known Drug Allergies Allergy (Verified 04/05/20 20:50) soy Adverse Reaction (Severe, Verified 04/05/20 20:50) Vomiting HOME MEDICATIONS: Home Medications Medication Instructions Recorded NK [No Known Home Medication] 06/11/17 REVIEW OF SYSTEMS CONSTITUTIONAL: Absent: fever, chills, diaphoresis, generalized weakness, malaise, loss of appetite, weight change HEENT: Absent: rhinorrhea, nasal congestion, throat pain, throat swelling, difficulty swallowing, mouth swelling, ear pain, eye pain, visual changes CARDIOVASCULAR: Absent: chest pain, syncope, palpitations, irregular heart rate, lightheadedness, peripheral edema RESPIRATORY: Absent: cough, shortness of breath, dyspnea with exertion, orthopnea, wheezing, stridor, hemoptysis GASTROINTESTINAL: Absent: abdominal pain, abdominal distension, nausea, vomiting, diarrhea, constipation, melena, hematochezia GENITOURINARY: Absent: dysuria, frequency, urgency, hesitancy, hematuria, flank pain, genital pain MUSCULOSKELETAL: Absent: myalgia, arthralgia, joint swelling, back pain, neck pain SKIN: Absent: rash, itching, pallor HEMATOLOGIC/IMMUNOLOGIC: Absent: easy bleeding, easy bruising, lymphadenopathy, frequent infections ENDOCRINE: Absent: unexplained weight gain, unexplained weight loss, heat intolerance, cold intolerance NEUROLOGIC: Absent: headache, focal weakness or paresthesias, dizziness, unsteady gait, seizure, mental status changes, bladder or bowel incontinence PSYCHIATRIC: Absent: anxiety, depression, suicidal or homicidal ideation, hallucinations. PHYSICAL EXAMINATION Vital Signs - 24 hr 04/05/20 20:48 Temperature 98.1 F Pulse Rate 64 Respiratory 18 Rate Blood Pressure 156/81 O2 Sat by Pulse 100 Oximetry (%) GENERAL: Awake, alert, and fully oriented, in no acute distress. HEAD: Normal with no signs of trauma. EYES: Pupils equal, round and reactive to light, extraocular movements intact, s clera anicteric, conjunctiva clear. No lid lag. EARS, NOSE, THROAT: Ears normal, nares patent, oropharynx clear without exudates. Moist mucous membranes. NECK: Normal range of motion, supple without lymphadenopathy, JVD, or masses. LUNGS: Breath sounds equal, clear to auscultation bilaterally. No wheezes, and no crackles. No accessory muscle use. HEART: Regular rate and rhythm, normal S1 and S2 without murmur, rub or gallop. ABDOMEN: Soft, nontender, not distended, normoactive bowel sounds, no guarding, no rebound, no masses. No hepatomegaly or splenomegaly. MUSCULOSKELETAL: Normal range of motion at all joints. No bony deformities or tenderness. No CVA tenderness. UPPER EXTREMITIES: 2+ pulses, warm, well-perfused. No cyanosis. No clubbing. No peripheral edema. LOWER EXTREMITIES: 3+ peripheral edema. erythematous and painful in r calf, decreased fine touch sensation in r side. NEUROLOGICAL: Cranial nerves II-XII intact. Normal speech. Normal gait. PSYCHIATRIC: Cooperative. Good eye contact. Appropriate mood and affect. SKIN: Warm, dry, normal turgor, no rashes or lesions noted, normal capillary refill. Laboratory Results - last 24 hr 04/06/20 04/06/20 04/06/20 02:00 02:00 02:00 WBC 5.8 RBC 4.66 Hgb 11.4 L Hct 34.9 L MCV 75.0 L MCH 24.4 L MCHC 32.5 RDW 19.5 H Plt Count 314 MPV 6.9 L Absolute Neuts (auto) 3.0 Neutrophils % 50.9 Lymphocytes % 34.9 Monocytes % 8.3 Eosinophils % 4.8 H Basophils % 1.1 Nucleated RBC % 0 PT with INR 12.70 INR 1.08 PTT (Actin FS) 31.7 Sodium 140 Potassium 4.0 Chloride 105 Carbon Dioxide 31 Anion Gap 4 L BUN 13.6 Creatinine 0.9 Est GFR (CKD-EPI)AfAm 115.02 Est GFR (CKD-EPI)NonAf 99.24 Random Glucose 94 Calcium 9.1 Total Bilirubin 0.3 AST 25 ALT 24 Alkaline Phosphatase 93 Total Protein 7.3 Albumin 3.3 L ASSESSMENT/PLAN: Mr. De Jesus is a 49M w a pmh of peripheral vascular disease, opiate use disorder(8-15bags), etoh use disorder (20oz bottles, 10x, pint Vodka). last drink 18 hours prior to arrival) transferred from [facility] for evaluation of RLE swelling. 1. DVT - wells score of 5 - right sided pitting edema, erythema, pain - duplex us reveals venous thrombosis in the right greater saphenous vein at its junction with the right common femoral vein. There is also thrombus in the right greater saphenous vein distally at the level of the knee and calf. - ddimer - CT angiogram - lovenox theraputic dose 80sq 2. heroin withdrawal - confirm dose of methadone with [facility] - COWS 25 - monitor for seizures, further withdrawal sx 3. Alcohol withdrawal - CIWA 21 - librium protocol - monitor for sx - banana bag - thiamine/folate - fall precautions 4. Anemia - monitor h/h - txfx at 7 - ATTENDING PHYSICIAN STATEMENT I saw and evaluated the patient. I reviewed the resident's note and discussed the case with the resident. I agree with the resident's findings and plan as documented. SUBJECTIVE: OBJECTIVE: ASSESSMENT AND PLAN:
[2020-04-06 04:46] VITALS: TEMP 98.3
[2020-04-06] MEDS ORDERED: FOLIC ACID INJECTION - 1 MG, THIAMINE HCL 100 MG, MULTIVIT INJECTION ADULT 10 ML in SOD... IVPB ONE (05:35)
[2020-04-06] MEDS ORDERED: chlordiazePOXIDE HCL 25 MG CAPSULE PO PRN (05:42)
[2020-04-06] MEDS: chlordiazePOXIDE HCL 25 MG CAPSULE PO SCH ×2 (08:04→11:39)
[2020-04-06 08:17] VITALS: BP 137/86; PULSE 67; BMI 21.9
[2020-04-06] MEDS ORDERED: ENOXAPARIN NA (PORCINE) 80 MG/0.8 ML DISP.SYRIN SQ SCH (13:00)
--- NOTE | 2020-04-06 15:53 | DS ---
Physical Exam: SUBJECTIVE: Patient seen and examined at bedside, not providing history, demanding more Methadone OBJECTIVE: Vital Signs Period Temp Pulse Resp BP Sys/Toscano Pulse Ox Last 24 Hr 98.1 F-98.3 F 64-98 17-20 118-156/68-86 97-100 PHYSICAL EXAM GENERAL: AOx3 HEAD: Normal with no signs of trauma. EYES: PERRL, extraocular movements intact, sclera anicteric, conjunctiva clear. ENT: Ears normal, nares patent, oropharynx clear without exudates, moist mucous membranes. NECK: Trachea midline, full range of motion, supple. LUNGS: Breath sounds equal, clear to auscultation bilaterally, no wheezes, no crackles, no accessory muscle use. HEART: Regular rate and rhythm, S1, S2 without murmur, rub or gallop. ABDOMEN: Soft, nontender, nondistended, normoactive bowel sounds, no guarding, no rebound, no hepatosplenomegaly, no masses. EXTREMITIES: 2+ pulses B/L, grossly edematous with mild erythema on ant aspect of R bagley, sensations and motor function intact NEUROLOGICAL: Cranial nerves II through XII grossly intact. Normal speech, gait not observed. PSYCH: Normal mood, normal affect. SKIN: Warm, dry, normal turgor, no rashes or lesions noted. LABS Laboratory Results - last 24 hr 04/06/20 04/06/20 04/06/20 02:00 02:00 02:00 WBC 5.8 RBC 4.66 Hgb 11.4 L Hct 34.9 L MCV 75.0 L MCH 24.4 L MCHC 32.5 RDW 19.5 H Plt Count 314 MPV 6.9 L Absolute Neuts (auto) 3.0 Neutrophils % 50.9 Lymphocytes % 34.9 Monocytes % 8.3 Eosinophils % 4.8 H Basophils % 1.1 Nucleated RBC % 0 PT with INR 12.70 INR 1.08 PTT (Actin FS) 31.7 Sodium 140 Potassium 4.0 Chloride 105 Carbon Dioxide 31 Anion Gap 4 L BUN 13.6 Creatinine 0.9 Est GFR (CKD-EPI)AfAm 115.02 Est GFR (CKD-EPI)NonAf 99.24 Random Glucose 94 Calcium 9.1 Total Bilirubin 0.3 AST 25 ALT 24 Alkaline Phosphatase 93 Total Protein 7.3 Albumin 3.3 L HOSPITAL COURSE: Date of Admission:04/06/20 This is a 49M with PMH of peripheral vascular disease, opiate use disorder(8- 15bags), etoh use disorder (20oz bottles, 10x, pint Vodka), transferred from [facility] for evaluation of RLE swelling. Presented to [facility] for heroin/alcohol detox. Was found to have Venous thrombus at the junction of R great Saphenous and R Fem veins + distal thrombus in saphenous veint at the level of knee/calf. He was started on 30mg Methadone taper as well as Librium protocol, and started on Lovenox 80mg BID. Refused blood draws, CTA unless given more methadone (was given 30mg), and signed out AMA after being explained risks of PE, , seizures. Date of Discharge: 04/06/20 Discharge Summary Problems reviewed: Yes Reason For Visit: DEEP VEIN THROMBOSIS (DVT) Condition: Improved - Instructions Disposition: AGAINST MEDICAL ADVICE - Home Medications Comprehensive Discharge Medication List: Ambulatory Orders NK [No Known Home Medication] 06/11/17 ATTENDING PHYSICIAN STATEMENT I saw and evaluated the patient. I reviewed the resident's note and discussed the case with the resident. I agree with the resident's findings and plan as documented. SUBJECTIVE: OBJECTIVE: ASSESSMENT AND PLAN:
--- NOTE | 2020-04-06 18:40 | PN ---
Teaching Attending Note Name of Resident: Julio Rivera ATTENDING PHYSICIAN STATEMENT I saw and evaluated the patient. I reviewed the resident's note and discussed the case with the resident. I agree with the resident's findings and plan as documented. SUBJECTIVE: seen in am around 10 am . complained of no pain, but wanted methadone and valium for withdrawal sx . stated edema in R leg is chronic . denied IV heroin use . uses cocaine and sniffs heroin and uses alcohol. OBJECTIVE: sleeping comfortably when i entered room, when awoken, he started shaking and did not participate in conversation focusing on methadone requests MMM. CV: RRR Lungs: CTAB Abd: soft, NT, ND , NL BS Ext: R leg circumference > L . pitting edema 2+ . L leg with trace edema . no erythema. feet with 2+ edema and Dp 2+ b/l. ASSESSMENT AND PLAN: 49 y/o man with multiple problems who presented fro, [facility] with RLE edema and was found tohave ETOH WD, heroin WD and RLE DVT 1- RLE DVT 2- R LE atherosclerotic disease with no stenosis 3- Heroin withdrawal 4- ETOH withdrawal plan : - AC with lovenox initially pending confirmation of any vascular procedure ( vascular consult pending ) ,, then decide on the oral agent depending on his insurance coverage - US reviewed. - methdone detox 30, 20, 15, 15, 10, then 5 mg each day. - ETOH detox withlibrium protocol - He refused CTA due to claustrophobia, he was offered IV ativana nd valium fro prep but still refused patient was explained the risk of from PE if not on AC and risk of leg /foot gangrene if significant PVD . Risk fo seizure, from withdrawal was also explained . He was advised to wait for vascular consult for determination on AC /procedure he showed understanding of the situation , and seems able to make decisions .
[2020-04-07] MEDS ORDERED: chlordiazePOXIDE HCL 25 MG CAPSULE PO SCH (05:00)
[2020-04-08] MEDS ORDERED: chlordiazePOXIDE HCL 10 MG CAPSULE PO PRN
[2020-04-08] MEDS ORDERED: chlordiazePOXIDE HCL 10 MG CAPSULE PO SCH (05:00)
--- NOTE | 2020-04-08 21:56 | EKG ---
Test Reason : Blood Pressure : / mmHG Vent. Rate : 062 BPM Atrial Rate : 062 BPM P-R Int : 158 ms QRS Dur : 108 ms QT Int : 424 ms P-R-T Axes : 054 014 049 degrees QTc Int : 430 ms NORMAL SINUS RHYTHM NORMAL ECG WHEN COMPARED WITH ECG OF 05-FEB-2020 14:05, NO SIGNIFICANT CHANGE WAS FOUND Confirmed by KLARISSA GRANT MD ([id number]) on 04/08/2020 9:55:55 PM Referred By: Confirmed By:KLARISSA GRANT MD
[2020-04-09] MEDS ORDERED: chlordiazePOXIDE HCL 10 MG CAPSULE PO SCH (05:00)
[2020-04-10] MEDS ORDERED: chlordiazePOXIDE HCL 10 MG CAPSULE PO ONE (05:00)
== END 2020-04-06 13:00 | disposition left against medical advice (07) | DRG 197 ==
LOC: JER 20:43 → JERBED 04-06 03:58 → J6S 04-06 06:51
PROVIDERS: ADMIT Internal Medicine; ATTEND Internal Medicine
PROC: HZ2ZZZZ Detoxification Services for Substance Abuse Treatment (ICD-10-PCS; principal; 2020-04-05)
DX: I82.491 Acute embolism and thrombosis of other specified deep vein of right lower extremity (principal); K21.9 Gastro-esophageal reflux disease without esophagitis; F10.230 Alcohol dependence with withdrawal, uncomplicated; F17.210 Nicotine dependence, cigarettes, uncomplicated; F11.20 Opioid dependence, uncomplicated; F14.10 Cocaine abuse, uncomplicated; F19.239 Other psychoactive substance dependence with withdrawal, unspecified; I70.201 Unspecified atherosclerosis of native arteries of extremities, right leg; D50.9 Iron deficiency anemia, unspecified; I10 Essential (primary) hypertension
CPT/HCPCS: 36415; 80053; 85025; 85610; 85730; 93005; 93010; 93925-TC; 93970-TC; 99285-25

== ENCOUNTER 2021-02-05 12:33 | Inpatient (IN) | payer OTHER ==
[2021-02-05 13:13] VITALS: BMI 23.1
[2021-02-05] MEDS ORDERED: BISMUTH SUBSALICYLATE 524 MG/30 ML PO PRN (13:20)
[2021-02-05] MEDS ORDERED: ACETAMINOPHEN 325 MG TABLET (FP) PO PRN ×2 (13:20)
[2021-02-05] MEDS ORDERED: cloNIDine HCL 0.1 MG TABLET PO PRN (13:20)
[2021-02-05] MEDS ORDERED: IBUPROFEN 400 MG TABLET (FP) PO PRN (13:20)
[2021-02-05] MEDS ORDERED: ONDANSETRON *ODT* 4 MG TABLET SL PRN (13:20)
[2021-02-05] MEDS ORDERED: MAGNESIUM HYDROX 2400MG/30ML ORAL SUSPENSION 30 ML CUP PO PRN (13:20)
[2021-02-05] MEDS ORDERED: MAG HYDROX/AL HYDROX/SIMETH 30 ML UNIT-DOSE CUP PO PRN (13:20)
[2021-02-05] MEDS ORDERED: MAGNESIUM CITRATE 300 ML BOTTLE PO PRN (13:20)
[2021-02-05] MEDS ORDERED: MENTHOL/PHENOL 1 EACH UD MM PRN (13:20)
[2021-02-05] MEDS ORDERED: NICOTINE POLACRILEX 2 MG GUM BUC PRN (13:20)
[2021-02-05] MEDS ORDERED: METHADONE HCL 10 MG TABLET (FOR DETOX USE ONLY) PO ONE (14:00)
[2021-02-05] MEDS: PRENATAL VITAMINS W/ FOLIC ACID TABLET (FP) PO SCH (15:09)
[2021-02-05] MEDS: hydrOXYzine PAMOATE 25 MG CAPSULE (FP) PO SCH ×3 (15:09→23:03)
[2021-02-05] MEDS: NICOTINE 21 MG/24 HOURS TOPICAL PATCH TD SCH (15:09)
[2021-02-05 15:57] LABS: HEMATOCRIT 38.5 % (35.4-49); HEMOGLOBIN 12.6 GM/dL (11.7-16.9); MCH 26.2 pg (25.7-33.7); MCHC 32.9 g/dl (32.0-35.9); MEAN CELL VOLUME 79.8 fl (80-96); MEAN PLT VOLUME 6.9 fl (7.5-11.1); PLATELET COUNT 343 10^3/uL (134-434); RBC 4.82 M/mm3 (4.00-5.60); RDW 16.5 % (11.9-15.9); WHITE BLOOD COUNT 10.7 K/mm3 (4.0-10.0)
[2021-02-05 16:09] LABS: CALCIUM 8.7 mg/dL (8.5-10.1)
[2021-02-05 16:10] LABS: ALBUMIN 3.3 g/dl (3.4-5.0); BLOOD UREA NITROGEN 14.7 mg/dL (7-18)
[2021-02-05 16:13] LABS: CREATININE 0.8 mg/dL (0.55-1.3)
[2021-02-05 16:14] LABS: BILIRUBIN,TOTAL 0.5 mg/dL (0.2-1); TOT PROT 8.3 g/dl (6.4-8.2)
[2021-02-05] MEDS: MELATONIN 5 MG TABLETS PO SCH (23:03)
[2021-02-05] MEDS: THIAMINE HCL 100 MG TABLET (FP) PO SCH (23:03)
[2021-02-06] MEDS: hydrOXYzine PAMOATE 25 MG CAPSULE (FP) PO SCH (06:53)
[2021-02-06] MEDS ORDERED: METHADONE (DETOX) 20 MG, METHADONE (DETOX) 5 MG PO ONE (10:00)
[2021-02-06] MEDS ORDERED: METHADONE HCL 10 MG TABLET (FOR DETOX USE ONLY) ONE (10:58)
[2021-02-06] MEDS ORDERED: METHADONE HCL 5 MG TABLET (FOR DETOX USE ONLY) ONE (10:59)
[2021-02-06] MEDS: PRENATAL VITAMINS W/ FOLIC ACID TABLET (FP) PO SCH (11:00)
[2021-02-06] MEDS: diazePAM 5 MG TABLET PO PRN ×3 (11:00→22:56)
[2021-02-06] MEDS: NICOTINE 21 MG/24 HOURS TOPICAL PATCH TD SCH (11:01)
[2021-02-06] MEDS: METHOCARBAMOL 500 MG TABLET PO PRN ×2 (11:01→22:57)
[2021-02-06] MEDS: MELATONIN 5 MG TABLETS PO SCH (22:56)
[2021-02-06] MEDS: THIAMINE HCL 100 MG TABLET (FP) PO SCH (22:58)
[2021-02-07] MEDS: diazePAM 5 MG TABLET PO PRN ×4 (07:06→20:20)
[2021-02-07] MEDS ORDERED: METHADONE HCL 10 MG TABLET (FOR DETOX USE ONLY) PO ONE (10:00)
[2021-02-07] MEDS: NICOTINE 21 MG/24 HOURS TOPICAL PATCH TD SCH (10:15)
[2021-02-07] MEDS: PRENATAL VITAMINS W/ FOLIC ACID TABLET (FP) PO SCH (10:15)
[2021-02-07] MEDS: hydrOXYzine PAMOATE 25 MG CAPSULE (FP) PO PRN ×2 (10:16→22:41)
[2021-02-07] MEDS: METHOCARBAMOL 500 MG TABLET PO PRN ×2 (10:16→22:40)
[2021-02-07] MEDS: THIAMINE HCL 100 MG TABLET (FP) PO SCH (22:41)
[2021-02-07] MEDS: MELATONIN 5 MG TABLETS PO SCH (22:41)
[2021-02-08] MEDS: diazePAM 5 MG TABLET PO PRN ×4 (00:36→19:57)
[2021-02-08] MEDS ORDERED: METHADONE HCL 10 MG TABLET (FOR DETOX USE ONLY) ONE (09:07)
[2021-02-08] MEDS ORDERED: METHADONE HCL 5 MG TABLET (FOR DETOX USE ONLY) ONE (09:07)
[2021-02-08] MEDS ORDERED: METHADONE (DETOX) 10 MG, METHADONE (DETOX) 5 MG PO ONE (10:00)
[2021-02-08] MEDS: PRENATAL VITAMINS W/ FOLIC ACID TABLET (FP) PO SCH (10:39)
[2021-02-08] MEDS: NICOTINE 21 MG/24 HOURS TOPICAL PATCH TD SCH (10:54)
[2021-02-08 14:08] LABS: SARS-CoV-2 NAA Not Detected (Not Detected)
[2021-02-08] MEDS: MELATONIN 5 MG TABLETS PO SCH ×2 (22:35→23:13)
[2021-02-08] MEDS: THIAMINE HCL 100 MG TABLET (FP) PO SCH ×2 (22:35→23:14)
[2021-02-09] MEDS: diazePAM 5 MG TABLET PO PRN ×3 (00:26→09:43)
[2021-02-09] MEDS: METHOCARBAMOL 500 MG TABLET PO PRN (09:43)
[2021-02-09] MEDS: NICOTINE 21 MG/24 HOURS TOPICAL PATCH TD SCH (09:43)
[2021-02-09] MEDS: PRENATAL VITAMINS W/ FOLIC ACID TABLET (FP) PO SCH (09:43)
[2021-02-09] MEDS ORDERED: METHADONE HCL 10 MG TABLET (FOR DETOX USE ONLY) PO ONE (10:00)
[2021-02-09] MEDS: diazePAM 5 MG TABLET PO SCH ×2 (18:57→23:14)
[2021-02-09] MEDS ORDERED: METHADONE HCL 5 MG TABLET (FOR DETOX USE ONLY) PO ONE (22:00)
[2021-02-09] MEDS: THIAMINE HCL 100 MG TABLET (FP) PO SCH (22:44)
[2021-02-09] MEDS: MELATONIN 5 MG TABLETS PO SCH (22:44)
[2021-02-10] MEDS ORDERED: METHADONE HCL 5 MG TABLET (FOR DETOX USE ONLY) PO ONE (06:00)
[2021-02-10] MEDS: hydrOXYzine PAMOATE 25 MG CAPSULE (FP) PO PRN (06:26)
[2021-02-10] MEDS: diazePAM 5 MG TABLET PO SCH (06:27)
[2021-02-10 06:53] VITALS: BP 122/78; PULSE 82; TEMP 98.1
[2021-02-10] MEDS: PRENATAL VITAMINS W/ FOLIC ACID TABLET (FP) PO SCH (10:48)
[2021-02-10] MEDS: NICOTINE 21 MG/24 HOURS TOPICAL PATCH TD SCH (10:48)
== END 2021-02-10 11:37 | disposition home or self-care (01) | DRG 773 ==
LOC: YASAS 12:33 → Y3N 14:01
PROVIDERS: ADMIT Allergy & Immunology; ATTEND Allergy & Immunology
PROC: HZ2ZZZZ Detoxification Services for Substance Abuse Treatment (ICD-10-PCS; principal; 2021-02-05)
DX: F11.23 Opioid dependence with withdrawal (principal); F10.20 Alcohol dependence, uncomplicated; F17.210 Nicotine dependence, cigarettes, uncomplicated; F41.9 Anxiety disorder, unspecified; I99.8 Other disorder of circulatory system; K21.9 Gastro-esophageal reflux disease without esophagitis
CPT/HCPCS: 36415; 80053; 85027; 86780; 93005; 93010; C9803; Q0162; U0003; U0005

== ENCOUNTER 2021-04-16 11:20 | Inpatient (IN) | payer OTHER ==
[2021-04-16 12:11] VITALS: BMI 19.5
[2021-04-16] MEDS ORDERED: ONDANSETRON *ODT* 4 MG TABLET SL PRN (13:19)
[2021-04-16] MEDS ORDERED: MAG HYDROX/AL HYDROX/SIMETH 30 ML UNIT-DOSE CUP PO PRN (13:19)
[2021-04-16] MEDS ORDERED: BISMUTH SUBSALICYLATE 262 MG/15 ML BTL PO PRN (13:19)
[2021-04-16] MEDS ORDERED: IBUPROFEN 400 MG TABLET (FP) PO PRN (13:19)
[2021-04-16] MEDS ORDERED: NICOTINE 10 MG CARTRIDGE (INHALER) IH PRN (13:19)
[2021-04-16] MEDS ORDERED: MENTHOL/PHENOL 1 EACH UD MM PRN (13:19)
[2021-04-16] MEDS ORDERED: MAGNESIUM CITRATE 300 ML BOTTLE PO PRN (13:19)
[2021-04-16] MEDS ORDERED: MAGNESIUM HYDROX 2400MG/30ML ORAL SUSPENSION 30 ML CUP PO PRN (13:19)
[2021-04-16] MEDS ORDERED: METHOCARBAMOL 500 MG TABLET PO PRN (13:19)
[2021-04-16] MEDS ORDERED: ACETAMINOPHEN 325 MG TABLET (FP) PO PRN ×2 (13:19)
[2021-04-16] MEDS: CEPHALEXIN MONOHYDRATE 500 MG CAPSULE (UD) PO SCH ×2 (14:52→23:11)
[2021-04-16] MEDS: diazePAM 5 MG TABLET PO PRN ×2 (14:52→23:11)
[2021-04-16] MEDS: hydrOXYzine PAMOATE 25 MG CAPSULE (FP) PO SCH ×3 (14:52→23:39)
[2021-04-16] MEDS: PRENATAL VITAMINS W/ FOLIC ACID TABLET (FP) PO SCH (14:53)
[2021-04-16] MEDS: NICOTINE 14 MG/24 HOURS TOPICAL PATCH TD SCH (14:54)
[2021-04-16 16:59] LABS: HEMATOCRIT 31.2 % (35.4-49); HEMOGLOBIN 10.3 GM/dL (11.7-16.9); MCH 26.5 pg (25.7-33.7); MCHC 33.2 g/dl (32.0-35.9); MEAN PLT VOLUME 6.8 fl (7.5-11.1); PLATELET COUNT 343 10^3/uL (134-434); RBC 3.89 M/mm3 (4.00-5.60); RDW 18.3 % (11.9-15.9); WHITE BLOOD COUNT 8.3 K/mm3 (4.0-10.0)
[2021-04-16 17:06] LABS: ALBUMIN 2.4 g/dl (3.4-5.0); BLOOD UREA NITROGEN 12.2 mg/dL (7-18); CALCIUM 8.1 mg/dL (8.5-10.1)
[2021-04-16 17:10] LABS: CREATININE 0.6 mg/dL (0.55-1.3)
[2021-04-16 17:11] LABS: BILIRUBIN,TOTAL 0.3 mg/dL (0.2-1); TOT PROT 7.2 g/dl (6.4-8.2)
[2021-04-16] MEDS: diazePAM 5 MG TABLET PO SCH ×2 (18:15→23:39)
[2021-04-16] MEDS: THIAMINE HCL 100 MG TABLET (FP) PO SCH (23:11)
[2021-04-16] MEDS: MELATONIN 5 MG TABLETS PO SCH (23:39)
[2021-04-17] MEDS: diazePAM 5 MG TABLET PO SCH ×4 (05:59→22:46)
[2021-04-17] MEDS: hydrOXYzine PAMOATE 25 MG CAPSULE (FP) PO SCH ×5 (05:59→22:47)
[2021-04-17] MEDS ORDERED: methaDONE HCL 10 MG TABLET ONE (09:44)
[2021-04-17] MEDS ORDERED: methaDONE HCL 40 MG DISPERSABLE TABLET ONE (09:44)
[2021-04-17] MEDS ORDERED: methaDONE HCL 10 MG TABLET PO SCH (09:45)
[2021-04-17] MEDS ORDERED: cloNIDine HCL 0.1 MG TABLET PO PRN (09:58)
[2021-04-17] MEDS: methaDONE 40 MG, methaDONE 30 MG PO SCH (11:19)
[2021-04-17] MEDS: PRENATAL VITAMINS W/ FOLIC ACID TABLET (FP) PO SCH (11:19)
[2021-04-17] MEDS: CEPHALEXIN MONOHYDRATE 500 MG CAPSULE (UD) PO SCH ×2 (11:19→22:46)
[2021-04-17] MEDS: NICOTINE 14 MG/24 HOURS TOPICAL PATCH TD SCH (11:23)
[2021-04-17] MEDS: THIAMINE HCL 100 MG TABLET (FP) PO SCH (22:46)
[2021-04-17] MEDS: MELATONIN 5 MG TABLETS PO SCH (22:47)
[2021-04-18] MEDS ORDERED: methaDONE HCL 40 MG DISPERSABLE TABLET ONE (04:23)
[2021-04-18] MEDS ORDERED: methaDONE HCL 10 MG TABLET ONE (04:23)
[2021-04-18] MEDS: methaDONE 40 MG, methaDONE 30 MG PO SCH (05:50)
[2021-04-18] MEDS: hydrOXYzine PAMOATE 25 MG CAPSULE (FP) PO SCH ×5 (05:52→23:49)
[2021-04-18] MEDS: diazePAM 5 MG TABLET PO SCH ×3 (06:00→23:17)
[2021-04-18] MEDS: PRENATAL VITAMINS W/ FOLIC ACID TABLET (FP) PO SCH (10:36)
[2021-04-18] MEDS: diazePAM 5 MG TABLET PO PRN (10:36)
[2021-04-18] MEDS: CEPHALEXIN MONOHYDRATE 500 MG CAPSULE (UD) PO SCH ×2 (10:37→23:16)
[2021-04-18] MEDS: NICOTINE 14 MG/24 HOURS TOPICAL PATCH TD SCH (10:41)
[2021-04-18] MEDS: MELATONIN 5 MG TABLETS PO SCH (23:16)
[2021-04-18] MEDS: THIAMINE HCL 100 MG TABLET (FP) PO SCH (23:16)
[2021-04-19] MEDS: diazePAM 5 MG TABLET PO PRN (02:06)
[2021-04-19] MEDS ORDERED: methaDONE HCL 40 MG DISPERSABLE TABLET ONE (04:13)
[2021-04-19] MEDS ORDERED: methaDONE HCL 10 MG TABLET ONE (04:13)
[2021-04-19] MEDS: methaDONE 40 MG, methaDONE 30 MG PO SCH (05:43)
[2021-04-19] MEDS: hydrOXYzine PAMOATE 25 MG CAPSULE (FP) PO SCH ×5 (05:44→22:31)
[2021-04-19] MEDS: diazePAM 5 MG TABLET PO SCH ×2 (05:44→17:52)
[2021-04-19] MEDS: PRENATAL VITAMINS W/ FOLIC ACID TABLET (FP) PO SCH (10:31)
[2021-04-19] MEDS: CEPHALEXIN MONOHYDRATE 500 MG CAPSULE (UD) PO SCH ×2 (10:31→22:30)
[2021-04-19] MEDS: NICOTINE 14 MG/24 HOURS TOPICAL PATCH TD SCH (10:31)
[2021-04-19] MEDS: THIAMINE HCL 100 MG TABLET (FP) PO SCH (22:30)
[2021-04-19] MEDS: MELATONIN 5 MG TABLETS PO SCH (22:31)
[2021-04-20] MEDS ORDERED: methaDONE HCL 10 MG TABLET ONE (04:08)
[2021-04-20] MEDS ORDERED: methaDONE HCL 40 MG DISPERSABLE TABLET ONE (04:08)
[2021-04-20] MEDS: methaDONE 40 MG, methaDONE 30 MG PO SCH (05:36)
[2021-04-20] MEDS: hydrOXYzine PAMOATE 25 MG CAPSULE (FP) PO SCH ×2 (05:37→11:04)
[2021-04-20] MEDS ORDERED: diazePAM 5 MG TABLET PO ONE (06:00)
[2021-04-20] MEDS: CEPHALEXIN MONOHYDRATE 500 MG CAPSULE (UD) PO SCH (09:21)
[2021-04-20] MEDS: PRENATAL VITAMINS W/ FOLIC ACID TABLET (FP) PO SCH (09:21)
[2021-04-20] MEDS: NICOTINE 14 MG/24 HOURS TOPICAL PATCH TD SCH (09:21)
[2021-04-20 10:36] VITALS: BP 95/50; PULSE 66; TEMP 97.8
== END 2021-04-20 12:17 | disposition home or self-care (01) | DRG 773 ==
LOC: YASAS 11:20 → Y6N 13:21
PROVIDERS: ADMIT Allergy & Immunology; ATTEND Allergy & Immunology
PROC: HZ2ZZZZ Detoxification Services for Substance Abuse Treatment (ICD-10-PCS; principal; 2021-04-16)
DX: F10.230 Alcohol dependence with withdrawal, uncomplicated (principal); F11.20 Opioid dependence, uncomplicated; F13.230 Sedative, hypnotic or anxiolytic dependence with withdrawal, uncomplicated; F17.210 Nicotine dependence, cigarettes, uncomplicated; F32.9 Major depressive disorder, single episode, unspecified; D64.9 Anemia, unspecified; J45.20 Mild intermittent asthma, uncomplicated; L03.115 Cellulitis of right lower limb; L03.116 Cellulitis of left lower limb; I73.89 Other specified peripheral vascular diseases; R74.01 Elevation of levels of liver transaminase levels
CPT/HCPCS: 36415; 80053; 85027; 86780; C9803; U0003; U0005